=== PATIENT | female | born 1975 | race Caucasian/White ===

== ENCOUNTER 2024-09-24 04:20 | Emergency (ER) | payer OTHER, SELFPAY ==
[2024-09-24 04:26] VITALS: BP 125/79; PULSE 102; TEMP 36.5; O2SAT 97; BMI 20.1
--- NOTE | 2024-09-24 04:39 | ED_ITS ---
HPI HPI - Extremity Injury (Upper) General Chief Complaint: Extremity Injury, Upper Stated Complaint: UPPER RIGHT EXTREMITY PAIN Time Seen by Provider: 09/24/24 04:25 Source: patient Limitations: no limitations History of Present Illness HPI narrative: This 49-year-old female who is right-hand dominant presents for evaluation of severe and exquisite pain in her right wrist joint. She states it is very tender to the touch and feels hot. She has some erythema at the distal ulna and on the dorsum of her hand and distal radius. She denies that she has had any heat or ice on it tonight. She denies any injury but was doing some light weight lifting on Monday. The patient is taking the semaglutide medication and has lost 20 pounds. She states that she does supplement her diet with Nutrafol vitamins but is concerned that she has a vitamin deficiency because she has recently had muscle pains in her shoulders and is seeing her doctor later today for numbness in one of her feet. She denies a history of gout. She denies any beer drinking but does eat red meat on occasion. She denies any chest pain or shortness of breath. There is no pain in her elbow or shoulder at this time. She is crying upon arrival with any movement of the extremity. She has been using ibuprofen without significant improvement. 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 Related Data Allergies Allergy/AdvReac Type Severity Reaction Status Date / Time Penicillins Allergy Unknown Unknown Verified 09/24/24 04:26 Opioid HPI Opioid Management Most Recent Pain and Opioid Data: Last Pain Scale 8 09/24/24 04:30 09/24/24 Review of Systems ROS Status of ROS 10 or more systems reviewed and unremark able except as noted in history and below PFSH PFSH Social History Little interest or pleasure in doing things: not at all Feeling down, depressed, or hopeless: not at all Exam Narrative Exam Narrative: Vital signs and Nursing Notes reviewed: Patient is afebrile, she is mildly tachycardic with a pulse of 102, she has normal blood pressure, she is not hypoxic with pulse ox of 97% on room air General: Awake, alert, oriented, tearful due to right wrist pain, thin, no respiratory distress HEENT: Normocephalic atraumatic, mucous membranes are moist and pink, eyes are clear, normal conjunctiva, vision is grossly intact Chest: Lungs are clear to auscultation with good air entry, there is no wheezing rhonchi or rales appreciated no accessory muscle use, patient is speaking in complete sentences-no chest wall tenderness to palpation CVS: Regular rate and rhythm S1-S2, no murmurs rubs or gallops, pulses are brisk and equal bilaterally ABD: Soft, nondistended, nontender, no rebound guarding or rigidity, bowel sounds are normal, no pulsatile masses appreciated Extremities: Patient is tearful with any movement of the right wrist area. There is some mild swelling and redness to the distal radius and ulna area with extension of the redness onto the dorsum of the hand at the fourth/fifth metacarpal. Patient is able to wiggle all of her fingers. There is no circumferential redness or sign of cellulitis. Radial pulses brisk, capillary refill in the fingers is normal Skin: Normal in appearance without rash,pallor, petechiae or purpura Neuro: No focal deficits Constitutional Vital Signs, click to edit/add: Last Vital Signs Temp 97.7 F 09/24/24 04:26 Pulse 102 H 09/24/24 04:26 Resp 18 09/24/24 04:26 BP 125/79 09/24/24 04:26 Pulse Ox 97 09/24/24 04:26 O2 Del Method Room Air 09/24/24 04:26 Course Vital Signs Vital signs: Vital Signs Temperature 97.7 F 09/24/24 04:26 Pulse Rate 102 H 09/24/24 04:26 Respiratory Rate 18 09/24/24 04:26 Blood Pressure 125/79 09/24/24 04:26 Pulse Oximetry 97 09/24/24 04:26 Oxygen Delivery Method Room Air 09/24/24 04:26 Temperature 97.7 F 09/24/24 04:26 Pulse Rate 102 H 09/24/24 04:26 Respiratory Rate 18 09/24/24 04:26 Blood Pressure 125/79 09/24/24 04:26 Pulse Oximetry 97 09/24/24 04:26 Oxygen Delivery Method Room Air 09/24/24 04:26 MDM - Extremity Injury (Upper) MDM Narrative Medical decision making narrative: This 49-year-old female who is right-hand dominant 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 She denies any injury. She did do some light weight lifting on Monday and her symptoms started on Monday. She has some mild redness and exquisite tenderness to the distal ulna with some radius overlying the distal ulna onto the dorsum of the hand and mildly also in the distal radius area. Her pulses are brisk and equal. Fingers are warm and sensate but she has referred pain with movement of her fingers into her wrist. She states the pain radiates up into her forearm but she has not had any elbow or shoulder pain. She does take semaglutide's and has recently lost 20 pounds and is concerned that she may have some vitamin deficiency. She states she has been having muscle strains recently. She did see her chiropractor and has some impingement syndrome in her right shoulder for which she is doing light physical therapy at home. She denies that she drinks beer has a history of gout or eats a lot of red meat. Her states she barely eats anything since taking the semaglutide medications. Her physical exam is benign besides the tenderness and redness in the right wrist area. My concern is that she is having a gout flare. I ordered a CBC, CMP, sed rate uric acid and CRP. I also ordered an x-ray of the extremity. I reviewed the right wrist x-ray which shows no fracture, dislocation or other notable abnormality. I do not see any arthritic changes. She has a mild elevation in her white count at 12.6 and stable hemoglobin. Her uric acid is normal. Sed rate is normal but CRP is elevated. CMP is normal. She is feeling better after the Percocet and was given a dose of prednisone. I initially suspected that she was experiencing a flare of gout but her labs do point away from this with a normal sed rate. I explained to her that she may have polymyalgia rheumatica because she states that if it is not her knee hurting her shoulder hurts and now her wrist hurts she has been experiencing arthralgias in different joints over the course of the past year. She is seeing her family physician later today and was given a copy of her labs to share with her family physician. I explained to her that she may do a more thorough rheumatologic workup on her in light of her symptoms of arthralgias in different major joints. She is otherwise stable for discharge and will be discharged home with a prescription for Percocet, Zofran and prednisone. Lab Data Attestation: I reviewed the patient's lab results. Labs: Lab Results 09/24/24 Range/Units 04:50 WBC 12.6 H (4.0-11.0) 10^3/uL RBC 4.57 (4.20-5.40) 10^6/uL Hgb 14.6 (12.0-16.0) g/dL Hct 41.6 (36.0-48.0) % MCV 91.0 (81.0-99.0) fL MCH 31.9 (26.7-34.0) pg MCHC 35.1 (29.9-35.2) g/dL RDW 12.2 (11.0-15.0) % Plt Count 333 (150-450) 10^3/uL MPV 9.7 (9.5-13.5) fL Neut % (Auto) 76.2 H (43.0-75.0) % Lymph % (Auto) 12.8 L (20.5-60.0) % Blanco % (Auto) 6.7 (1.7-12.0) % Eos % (Auto) 3.4 (0.9-7.0) % Baso % (Auto) 0.6 (0.2-2.0) % Neut # (Auto) 9.6 H (1.4-6.5) 10^3/uL Lymph # (Auto) 1.6 (1.2-3.8) 10^3/uL Blanco # (Auto) 0.9 H (0.3-0.8) 10^3/uL Eos # (Auto) 0.4 (0.0-0.7) 10^3/uL Baso # (Auto) 0.1 (0.0-0.1) 10^3/uL Abs Immat Gran (auto) 0.04 H (0.00-0.03) 10^3/uL Imm/Tot Granulo (auto) 0.3 (0.0-0.5) % ESR 13 (<=30) mm/hr Sodium 138 (136-145) mmol/L Potassium 3.9 (3.5-5.1) mmol/L Chloride 103 (98-107) mmol/L Carbon Dioxide 26.8 (21.0-32.0) mmol/L Anion Gap 12.1 BUN 10.0 (7.0-18.0) mg/dL Creatinine 0.96 (0.55-1.02) mg/dL Est GFR ( Amer) >60 (>=60 mL/min/1.73m^2) Est GFR (Non-Af Amer) >60 (>=60 mL/min/1.73m^2) BUN/Creatinine Ratio 10.4 Glucose 85 (74-106) mg/dL Uric Acid 4.8 (2.6-6.0) mg/dL Calcium 8.7 (8.5-10.1) mg/dL Total Bilirubin 0.5 (0.2-1.0) mg/dL AST 61 H (15-37) U/L ALT 108 H (14-59) U/L Alkaline Phosphatase 96 (46-116) U/L C-Reactive Protein 1.28 H (<=0.50) mg/dL Total Protein 7.0 (6.4-8.2) g/dL Albumin 3.5 (3.4-5.0) g/dL Globulin 3.5 g/dL Albumin/Globulin Ratio 1.0 Discharge Plan Discharge Chief Complaint: Extremity Injury, Upper Clinical Impression: Arthralgia of right wrist, Polymyalgia Patient Disposition: Home, Self-Care Time of Disposition Decision: 05:38 Condition: Good Mode of Transportation: Private Vehicle Print Language: Solomon Islander Instructions: Arthralgia (ED), Polymyalgia Rheumatica (ED) Referrals: CASTILLO JO [Primary Care Provider] - 1 week Discharge Date/Time: 09/24/24 05:49
[2024-09-24] MEDS: OXYCODONE HCL/ACETAMINOPHEN 5MG/325MG 1 TAB PO (04:54)
[2024-09-24] MEDS: ONDANSETRON 4 MG RAPDIS TABLET SL (04:54)
[2024-09-24 04:57] LABS: Basophils Absolute Auto 0.1 10^3/uL (0.0-0.1); Basophils Percent Auto 0.6 % (0.2-2.0); Eosinophils Absolute Auto 0.4 10^3/uL (0.0-0.7); Eosinophils Percent Auto 3.4 % (0.9-7.0); Hematocrit 41.6 % (36.0-48.0); Hemoglobin 14.6 g/dL (12.0-16.0); Immature Granulocytes Abs Auto 0.04 10^3/uL (0.00-0.03); Immature Granulocytes Pct Auto 0.3 % (0.0-0.5); Lymphocytes Absolute Auto 1.6 10^3/uL (1.2-3.8); Lymphocytes Percent Auto 12.8 % (20.5-60.0); Mean Corpuscular HGB Conc 35.1 g/dL (29.9-35.2); Mean Corpuscular Hemoglobin 31.9 pg (26.7-34.0); Mean Platelet Volume 9.7 fL (9.5-13.5); Monocytes Absolute Auto 0.9 10^3/uL (0.3-0.8); Monocytes Percent Auto 6.7 % (1.7-12.0); Neutrophils Absolute Auto 9.6 10^3/uL (1.4-6.5); Neutrophils Percent Auto 76.2 % (43.0-75.0); Platelet Count 333 10^3/uL (150-450); Red Blood Count 4.57 10^6/uL (4.20-5.40); Red Cell Distribution Width 12.2 % (11.0-15.0); White Blood Count 12.6 10^3/uL (4.0-11.0)
[2024-09-24 05:05] LABS: Erythrocyte Sedimentation Rate 13 mm/hr (<=30)
[2024-09-24 05:12] LABS: Alanine Aminotransferase 108 U/L (14-59); Albumin Level 3.5 g/dL (3.4-5.0); Alkaline Phosphatase 96 U/L (46-116); Anion Gap 12.1; Aspartate Amino Transferase 61 U/L (15-37); BUN Creatinine Ratio 10.4; Bilirubin Total 0.5 mg/dL (0.2-1.0); C Reactive Protein 1.28 mg/dL (<=0.50); Calcium 8.7 mg/dL (8.5-10.1); Carbon Dioxide 26.8 mmol/L (21.0-32.0); Chloride 103 mmol/L (98-107); Estimated GFR (African America >60 (>=60 mL/min/1.73m^2); Estimated GFR (Non-African Ame >60 (>=60 mL/min/1.73m^2); Globulin 3.5 g/dL; Glucose 85 mg/dL (74-106); Potassium 3.9 mmol/L (3.5-5.1); Sodium 138 mmol/L (136-145); Uric Acid 4.8 mg/dL (2.6-6.0)
[2024-09-24] MEDS: PREDNISONE 20 MG TABLET PO (05:42)
== END 2024-09-24 05:49 | disposition home or self-care (01) ==
PROVIDERS: Emergency Provider Emergency Medicine; PCP Family Medicine
DX: M25.531 Pain in right wrist (principal); M35.3 Polymyalgia rheumatica; Z79.899 Other long term (current) drug therapy
CPT/HCPCS: 36415; 73100; 80053; 84550; 85025; 85652; 86140; 99284; J7512; Q0162

== ENCOUNTER 2024-12-11 23:00 | Emergency (ER) | payer OTHER, SELFPAY ==
--- OUTSIDE RECORDS SUMMARY | 2024-12-10 08:30 | XMS_ITS | Encounter Summary ---
Author Organization [facility] Address [address] [place] [address] Care Team Providers Care Cmm Operator Name Role Phone Shahida Whittington MD Primary Care Provider [phone] Shahida Whittington MD Unavailable [phone] Reason for Referral * Imaging (Routine) - Pending Review Specialty Diagnoses / Procedures Referred By Brannon velazquez Referred To Contact Radiology Diagnoses Cervical arthritis Radiculopathy affecting upper extremity Facet arthritis of cervical region Procedures MR cervical spine wo contrast Brittany Downs NP [address] [place] [address] Phone: tel: fax: Referral ID Status Reason Start Date Expiration Date V isits Requested Visits Authorized [id number] Pending Review 12/10/2024 06/08/2025 1 1 Reason for Visit * Reason Comments Neck Pain Encounter Details Date Type Department Care Team (Late st Contact Info) Description 12/10/2024 8:30 AM EDT Office Visit [facility] [address] [place] [address] Brittany Downs NP [address] [place], [place] [id number] Neck pain (Primary Dx); Cervical arthritis; Radiculopathy affecting upper extremity; Facet arthritis of cervical region Social History Tobacco Use Types Packs/Day Years Used Date Smoking Tobacco: Never Smokeless Tobacco: Never Tobacco Cessation:Counseling Given: Not Answered Alcohol Use Standard Drinks/Week Comments Yes 3 (1 standard drink = 0.6 oz pur e alcohol) Caffine: 1 pop every 3 days B1300 Health Literacy Answer Date Recor ded How often do you need to hav e someone help you when you read instructions, pamphlets, or other written material from your doctor or pharmacy? Never 09/23/2024 Humiliation, Afraid, Rape, and Kick questionnair e Answer Date Recorded Within the last year, have y ou been afraid of your partner or ex-partner? No 01/05/2023 Within the last year, have y ou been humiliated or emotionally abused in other ways by your partner or ex-partner? No Within the last year, have y ou been kicked, hit, slapped, or otherwise physically hurt by your partner or ex-partner? No 01/05/2023 Within the last year, have y ou been raped or forced to have any kind of sexual activity by your partner or ex-partner? No 01/05/2023 Social Connection and Isolation Panel [NHANES] A nswer Date Recorded In a typical week, how many times do you talk on the phone with family, friends, or neighbors? Three times a week 09/23/2024 How often do you get togethe r with friends or relatives? Once a week 09/23/2024 How often do you attend chur or episcopalian services? Patient declined 09/23/2024 Do you belong to any clubs o r organizations such as jew groups, unions, fraternal or athletic groups, or school groups? No 09/23/2024 How often do you attend meet ings of the clubs or organizations you belong to? Never 09/23/2024 Are you , , di vorced, , never , or living with a partner? 09/23/2024 AUDIT-C Answer Date Recorded Q1: How often do you have a drink containing alc ohol? 2-4 times a month 09/23/2024 Q2: How many drinks containi ng alcohol do you have on a typical day when you are drinking? 1 or 2 09/23/2024 Q3: How often do you have si x or more drinks on one occasion? Never 09/23/2024 Overall Financial Resource Strain (CARDIA) Answe r Date Recorded How hard is it for you to pa y for the very basics like food, housing, medical care, and heating? Not very hard 09/23/2024 [facility] - Occupational Stress Questionnaire Answer Date Recorded Do you feel stress - tense, restless, nervous, or anxious, or unable to sleep at night because your mind is troubled all the time - these days? Not at all 09/23/2024 Exercise Vital Sign Answer Date Recorde d On average, how many days pe r week do you engage in moderate to strenuous exercise (like a brisk walk)? 2 days 09/23/2024 On average, how many minutes do you engage in exercise at this level? 30 min 09/23/2024 Hunger Vital Sign Answer Date Recorded Within the past 12 months, y ou worried that your food would run out before you got the money to buy more. Never true 09/24/19 25 Within the past 12 months, t he food you bought just didn't last and you didn't have money to get more. Never true 09/23/2024 PRAPARE - Transportation Answer Date Re corded In the past 12 months, has l ack of transportation kept you from medical appointments or from getting medications? No 09/2024 In the past 12 months, has l ack of transportation kept you from meetings, work, or from getting things needed for daily living? No 09/23/2024 Housing Stability Vital Sign Answer Austyn e Recorded In the last 12 months, was t here a time when you were not able to pay the mortgage or rent on time? No 01/05/2023 In the last 12 months, how many places have you lived? 1 01/05/2023 In the last 12 months, was t here a time when you did not have a steady place to sleep or slept in a snf (including now)? No 01/05/2023 Housing Stability Vital Sign Answer Austyn e Recorded In the last 12 months, was t here a time when you were not able to pay the mortgage or rent on time? No 09/23/2024 In the past 12 months, how m any times have you moved where you were living? 0 09/23/2024 At any time in the past 12 m [facility], were you homeless or living in a snf (including now)? No 09/23/2024 Comments Unknown Sex and Gender Information Value Date Recorded Sex Assigned at Not on file Legal Sex Female 6:53 PM EDT Gender Identity Not on file Sexual Orientation Not on file documented as of this encounter Last Filed Vital Signs Vital Sign Reading Time Taken Comments Blood Pressure 130/86 12/10/2024 8:31 AM EDT Pulse 83 12/10/2024 8:31 AM EDT Temperature 36.1 C (96.9 F) 12/10/2024 8:31 AM EDT Respiratory Rate - - Oxygen Saturation 99% 12/10/2024 8:31 AM EDT Inhaled Oxygen Concentration - - Weight 62.8 kg (138 lb 6.4 oz) 12/10/2024 8:31 A M EDT Height - - Body Mass Index 19.86 10/09/2024 9:01 AM EDT documented in this encounter Progress Notes * Brittany Downs NP - 12/10/2024 8:30 AM EDT Images from the original note were not included. Vidya Ashraf is a 49 y.o. female presents with chief complaint of Neck Pain HPI: HPI History of Present Illness The patient presents for evaluation of neck pain. She has been experiencing persistent neck pain since 06/2024. A territory sales executive conducted a series of tests, all of which returned negative results, ruling out any autoimmune disease. However, radiographic imaging revealed the presence of degenerative disc disease and arthritis, likely contributing to her neck discomfort. She was advised to consult an nuclear weapons specialist. She has expressed a preference for neurosurgical intervention over orthopedic surgery, should it be necessary. She has not undergone any MRI scans or physical therapy for her current condition. She is considering the use of peptides, specifically PDA, as an alternative treatment option. She has also discussedpotential pain management strategies with her hormone doctor, who previously worked in pain management, including injections and ablation. She is open to surgical intervention if deemed necessary. She has been managing her pain with ibuprofen 400 mg, but was advised to increase the dosage to 800mg. Despite taking the medication with food, she experienced gastrointestinal upset after a week ofincreased dosage and subsequently discontinued its use. She has a history of back surgery, including spinal fusion, performed a decade ago. During that time, she was prescribed naproxen for back pain, which resulted in significant gastrointestinal distress. PAST SURGICAL HISTORY: Spinal fusion surgery: 10 years ago SUBJECTIVE: MEDICATIONS: ALLERGIES Current Outpatient Medications Medication Instructions Azelex 20 % cream APPLY TO THE AFFECTED AREA(S) EVERY NIGHT AT BEDTIME cholecalciferol (Vitamin D-3) 75 MCG (3000 UT) tablet Take by mouth. ibuprofen 800 mg, Oral, 3 times daily levothyroxine (SYNTHROID) 25 mcg, Oral, Daily before breakfast loratadine (Claritin) 10 MG tablet Every 24 hours progesterone 200 mg, Daily spironolactone (Aldactone) 100 MG tablet testosterone implant as directed Implant Tirzepatide-Weight Management (ZEPBOUND SC) Inject under the skin valACYclovir (VALTREX) 1,000 mg, 2 times daily Allergies Allergen Reactions Naproxen GI intolerance Penicillins Other Reaction(s): Unknown Thyroid PHYSICAL MEDICINE SPECIALIST Thyroid PAST MEDICAL HISTORY: SOCIAL HISTORY SURGICAL HISTORY: Past Medical History: Diagnosis Date Allergic Dermal nevus 2012 Eczema GERD (gastroesophageal reflux disease) Urinary tract infection Varicella Social History Tobacco Use Smoking status: Never Smokeless tobacco: Never Vaping Use Vaping status: Never Used Substance Use Topics Alcohol use: Yes Alcohol/week: 3.0 standard drinks of alcohol Types: 3 Glasses of wine per week Comment: Caffine: 1 pop every 3 days Drug use: Never Past Surgical History: Procedure Laterality Date ADENOIDECTOMY 1978 BACK SURGERY 2015 COSMETIC SURGERY 2019 EXCISION 2013 skin lesion right upper chest; dermal nevus FOOT SURGERY Right 2013 excision lesion NASAL SEPTUM SURGERY 2011 deviated septum NASAL SINUS SURGERY 07/2018 SPINE SURGERY TONSILECTOMY, ADENOIDECTOMY, BILATERAL MYRINGOTOMY AND TUBES TONSILLECTOMY 1977 REVIEW OF SYMPTOMS: Review of Systems Constitutional: Negative. HENT: Negative. Respiratory: Negative for cough, shortness of breath and wheezing. Cardiovascular: Negative for chest pain. Gastrointestinal: Negative for abdominal pain. Genitourinary: Negative. Musculoskeletal: Positive for neck pain. Skin: Negative. Neurological: Negative. OBJECTIVE: Vitals: 12/10/24 0831 Temp: 96.9 ??F Physical Exam Vitals and nursing note reviewed. Constitutional: Appearance: Normal appearance. HENT: Head: Normocephalic and atraumatic. Right Ear: Tympanic membrane normal. Left Ear: Tympanic membrane normal. Nose: Nose normal. Eyes: Extraocular Movements: Extraocular movements intact. Conjunctiva/sclera: Conjunctivae normal. Pupils: Pupils are equal, round, and reactive to light. Cardiovascular: Rate and Rhythm: Normal rate and regular rhythm. Heart sounds: Normal heart sounds. Pulmonary: Effort: Pulmonary effort is normal. Breath sounds: Normal breath sounds. Musculoskeletal: Cervical back: Neck supple. Pain with movement present. Decreased range of motion. Neurological: Mental Status: She is alert. ASSESSMENT AND PLAN: Assessment/Plan Diagnoses and all orders for this visit: Neck pain - celecoxib (CeleBREX) 200 MG capsule; Take 1 capsule (200 mg) by mouth Daily Cervical arthritis - celecoxib (CeleBREX) 200 MG capsule; Take 1 capsule (200 mg) by mouth Daily - MR cervical spine wo contrast; Future Radiculopathy affecting upper extremity - MR cervical spine wo contrast; Future Facet arthritis of cervical region - MR cervical spine wo contrast; Future Assessment & Plan 1. Cervicalgia. - The patient's cervicalgia is likely due to degenerative disc disease and arthritis, as indicated by previous x-rays. - She has been experiencing pain since 06/2024 and has had an upset stomach from ibuprofen 800 mg. - Celebrex 200 mg once daily has been prescribed as an alternative NSAID that is less irritating tothe stomach. - An MRI has been ordered to further evaluate the condition. If the MRI results indicate the need for further intervention, a referral to a neurosurgeon will be considered. No follow-ups on file. documented in this encounter Plan of Treatment Scheduled Orders Name Type Priority Associated Diagnoses Orde r Schedule MR cervical spine wo contrast Imaging Routine Cervical arthritis Radiculopathy affecting upper extremity Facet arthritis of cervical region Expected: 12/10/2024, Expires: 12/10/2025 documented as of this encounter Visit Diagnoses Diagnosis Neck pain- Primary Cervicalgia Cervical arthritis Cervical spondylosis without myelopathy Radiculopathy affecting upper extremity Facet arthritis of cervical region documented in this encounter Care Teams Cmm Operator Relationship Specialty Start Date End Date Shahida Whittington MD [address], [place] [id number] PCP - General Family Medicine 01/04/23 Shahida Whittington MD [address] [place] [address] PCP - Medical [place] [employer] 01/21/19 07/23/99 documented as of this encounter
[2024-12-11 23:10] VITALS: BP 130/75
[2024-12-11 23:11] VITALS: BP 130/75; PULSE 83; O2SAT 97; BMI 19.9
--- OUTSIDE RECORDS SUMMARY | 2024-12-11 23:13 | XMS_ITS | Encounter Summary ---
Author Organization [facility] Address [address] [place] [address] Care Team Providers Care Highway Maintainer Name Role Phone Shahida Whittington MD Primary Care Provider [phone] Shahida Whittington MD Unavailable [phone] Encounter Details Date Type Department Care Team (Latest Contact Info) Description 12/06/2024 Travel Social History Tobacco Use Types Packs/Day Years Used Date Smoking Tobacco: Never Smokeless Tobacco: Never Alcohol Use Standard Drinks/Week Comments Yes 3 (1 standard drink = 0.6 oz pur e alcohol) Caffine: 0 B1300 Health Literacy Answer Date Recor ded [...] How often do you attend chur or jew services? Patient declined 09/23/2024 Do you belong to any clubs o r organizations such as oriental orthodox groups, unions, fraternal or athletic groups, or [...] care, and heating? Not very hard 09/23/2024 [facility] Occup[facility] ional Health - Occupational Stress Questionnaire Answer Date [...] place to sleep or slept in a retirement (including now)? No 01/05/2023 Housing Stability Vital Sign Answer Austyn e Recorded In the last 12 months, was t here a time when you were not able to pay the mortgage or rent on time? No 09/23/2024 In the past 12 months, how m any times have you moved where you were living? 0 09/23/2024 At any time in the past 12 m [facility], were you homeless or living in a retirement (including now)? No 09/23/2024 Comments Unknown Sex and Gender Information Value Date Recorded Sex Assigned at Not on file Legal Sex Female 6:53 PM EDT Gender Identity Not on file Sexual Orientation Not on file documented as of this encounter Plan of Treatment Not on file documented as of this encounter Visit Diagnoses Not on filedocumented in this encounter Care Teams Highway Maintainer Relationship Specialty Start Date End Date Shahida Whittington MD [address] [facility] [place] [address] PCP - General Family Medicine 01/04/23 Shahida Whittington MD [address] [place] [address] PCP - Medical [employer] [employer] 01/21/19 07/23/99 documented as of this encounter
--- OUTSIDE RECORDS SUMMARY | 2024-12-11 23:13 | XMS_ITS | Encounter Summary ---
Author Organization [facility] Address [address] [place] [address] Care Team Providers Care Director Of Community Center Name Role Phone Shahida Whittington MD Primary Care Provider [phone] Shahida Whittington MD Unavailable [phone] Encounter Details Date Type Department Care Team (Late st Contact Info) Description 06/07/2023 Abstract [facility] [address] [place] [address] Shahida Whittington MD [address] [place] [address] Social History Tobacco Use Types Packs/Day Years Used Date Smoking Tobacco: Never Smokeless Tobacco: Never Alcohol Use Standard Drinks/Week Comments Yes 3 (1 standard drink = 0.6 oz pur e alcohol) Humiliation, Afraid, Rape, and Kick questionnair e [...] the phone with family, friends, or neighbors? Once a week 01/05/2023 How often do you get togethe r with friends or relatives? Once a week 01/05/2023 How often do you attend voodoo or yarsanism serv ices? Patient declined 01/05/2023 Do you belong to any clubs o r organizations such as voodoo groups, unions, fraternal or athletic groups, or school groups? No 01/05/2023 Attends Club or Organization Meetings Not on kaiden e 01/05/2023 Are you , , di vorced, , never , or living with a partner? 01/05/2023 AUDIT-C Answer Date Recorded Q1: How often do you have a drink containing alc ohol? 2-4 times a month 01/05/2023 Q2: How many drinks containi ng alcohol do you have on a typical day when you are drinking? 1 or 2 01/05/2023 Q3: How often do you have si x or more drinks on one occasion? Never 01/05/2023 Overall Financial Resource Strain (CARDIA) Answe r Date Recorded How hard is it for you to pa y for the very basics like food, housing, medical care, and heating? Not hard at all 01/05/2023 [facility] - Occupational Stress Questionnaire Answer Date Recorded Do you feel stress - tense, restless, nervous, or anxious, or unable to sleep at night because your mind is troubled all the time - these days? Only a little 01/05/2023 Exercise Vital Sign Answer Date Recorde d On average, how many days pe r week do you engage in moderate to strenuous exercise (like a brisk walk)? 3 days 01/05/2023 On average, how many minutes do you engage in exercise at this level? 30 min 01/05/2023 Hunger Vital Sign Answer Date Recorded Within the past 12 months, y ou worried that your food would run out before you got the money to buy more. Never true 01/06/20 23 Within the past 12 months, t he food you bought just didn't last and you didn't have money to get more. Never true 01/05/2023 PRAPARE - Transportation Answer Date Re corded In the past 12 months, has l ack of transportation kept you from medical appointments or from getting medications? No 12/22 In the past 12 months, has l ack of transportation kept you from meetings, work, or from getting things needed for daily living? No 01/05/2023 Housing Stability Vital Sign Answer [...] place to sleep or slept in a prison (including now)? No 01/05/2023 Comments Unknown Sex and Gender Information Value Date Recorded Sex Assigned at Not on file Legal Sex Female 6:53 PM EDT Gender Identity Not on file Sexual Orientation Not on file documented as of this encounter Plan of Treatment Not on file documented as of this encounter Visit Diagnoses Not on filedocumented in this encounter Care Teams Director Of Community Center Relationship Specialty Start Date End Date Shahida Whittington MD [address] [facility] [place] [address] PCP - General Family Medicine 01/04/23 Shahida Whittington MD [address] [place] [address] PCP - Medical [employer] 01/21/19 07/23/99 documented as of this encounter
--- OUTSIDE RECORDS SUMMARY | 2024-12-11 23:13 | XMS_ITS | Clinical Summary ---
Author Organization [facility] Address [address] [place] [address] Care Team Providers Care Manhole Stripper Name Role Phone Shahida Fernandez MD Primary Care Pr ovider Allergies Active Allergy Reactions Criticality Noted Date Comments Penicillins 07/02/2013 Medications Liothyronine Sodium (RWSWCME-X-JYHPZT INE SODIUM) POWD Take 3.75 mg by mouth daily Active Cholecalciferol (VITAMIN D3) 3000 UNITS TABS Take by mouth Activ e Loratadine (CLARITIN PO) Take by mouth as needed Active omeprazole (PRILOSEC) 20 MG delayed release capsule take 2 capsules by mouth once daily before A MEAL 0 7 Active fluticasone (FLONASE) 50 MCG/ACT nasal spray instill 1 spray into each nostril once daily 0 7 Active triamterene-hydro chlorothiazide (MAXZIDE-25) 37.5-25 MG per tabletIndications :Retention of fluid Take 1 tablet by mouth daily as needed (For water retention use only when needed) 30 tablet 3 7 Active TAZORAC 0.05 % cream APPLY A SMALL AMOUNT TO THE FACE EVERY NIGHT 0 8 Active nystatin (MYCOSTATIN) 266678 UNIT/ML suspension Take 4 mLs by mouth 4 times daily 0 9 Active Specialty Vitamins Products (MENOPAUSE RELIEF PO) Take 3 tablets by mouth nightly Active Progesterone Micronized (PROGESTERONE PO) Take 0.[address] .25 ml subligual Active EC-RX TESTOSTERONE TD Place 1.5 mLs onto the skin Apply 1.5 ml nightly to thigh Active clotrimazole-beta methasone (LOTRISONE) 1-0.05 % creamIndications: Candidal vulvitis Apply topically 2 times daily. 1 Tube 1 0 Active Active Problems Problem Noted Date Diagnosed Date Heartburn 07/22/2013 Family History Medical History Relation Name Comments Heart Disease Father Heart Surgery Father Heart Surgery Paternal Aunt ablation for a-fib Alzheimer's Disease Paternal Grandfather Heart Attack Paternal Uncle Heart Disease Paternal Uncle Relation Name Status Comments Father Alive Mother Alive Paternal Aunt Alive Paternal Grandfather Paternal Uncle Social History Tobacco Use Types Packs/Day Years Used Date Smoking Tobacco: Never Smokeless Tobacco: Never Alcohol Use Standard Drinks/Week Comments Yes 0 (1 standard drink = 0.6 oz pur e alcohol) weekly PHQ-2 Answer Date Recorded PHQ-2 Score 0 10/24/2018 Comments No Sex and Gender Information Value Date Recorded Sex Assigned at Not on file Legal Sex Female 3:30 PM EST Gender Identity Not on file Sexual Orientation Not on file Last Filed Vital Signs Vital Sign Reading Time Taken Comments Blood Pressure 118/64 09/05/2019 3:06 PM EST Pulse 80 07/22/2013 12:05 PM EST Temperature 36.9 C (98.5 F) 07/22/2013 12:05 PM EST Respiratory Rate 14 07/22/2013 12:05 PM EST Oxygen Saturation 100% 07/22/2013 12:05 PM EST Inhaled Oxygen Concentration - - Weight 65.3 kg (144 lb) 09/05/2019 3:06 PM EST Height 177.8 cm (5' 10 ) 09/05/2019 3:06 PM EST Body Mass Index 20.66 09/05/2019 3:06 PM EST Plan of Treatment Not on file Insurance [employer] Care Teams Manhole Stripper Relationship Specialty Start Date End Date Shahida Fernandez MD PCP - General Family Medicine 01/16/17
--- OUTSIDE RECORDS SUMMARY | 2024-12-11 23:13 | XMS_ITS | Clinical Summary ---
Author Organization [employer] [facility] Address [id number] [address] [place] [address] Care Team Providers Care Semiconductor Technician Name Role Phone Shahida Whittington MD Primary Care Provider [phone] Allergies Active Allergy Reactions Criticality Noted Date Comments Penicillins 10/24/2024 Medications ibuprofen (MOTRIN) 800 mg tablet Take 1 tablet (800 mg total) by mouth every 6 (six) hours as needed. 4 Active levothyroxine (SYNTHROID, LEVOTHROID) 25 MCG tablet Take 1 tablet (25 mcg total) by mouth in the morning. 4 01/09/20 25 Active loratadine (CLARITIN) 10 mg tablet Take 1 tablet (10 mg total) by mouth in the morning. Active ondansetron (ZOFRAN) 4 mg tablet Take 1 tablet (4 mg total) by mouth every 8 (eight) hours as needed for nausea. 5 Active progesterone (PROMETRIUM) 200 mg capsule Take 1 capsule (200 mg total) by mouth in the morning. Active spironolactone (ALDACTONE) 100 mg tablet Take 1 tablet (100 mg total) by mouth in the morning. Active valACYclovir (VALTREX) 1000 mg tablet Take 1 tablet (1,000 mg total) by mouth in the morning and 1 tablet (1,000 mg total) before bedtime. 4 Active methylPREDNISol one (MEDROL, JUAN,) 4 mg tablet follow package directions 21 tablet 5 Active tiZANidine (ZANAFLEX) 2 mg tabletIndicatio ns:Neck pain One tab at bed time 30 tablet 2 5 Active Active Problems Problem Noted Date Diagnosed Date HLA B27 positive 11/21/2024 Neck pain 11/21/2024 MATTIE positive 10/24/2024 Arthritis of right wrist 10/24/2024 Encounters Date Type Department Care Team Description 11/26/2024 Telephone [facility] Department of [facility] [address] [place] [address] [address] [place] [address] Bonita Greco, [facility] 11/21/2024 3:30 PM EDT Office Visit [facility] Department of [address] [place] [address] Kenneth Galvan MD HLA B27 positive (Primary Dx); Neck pain 11/21/2024 2:50 PM EDT - 11/21/2024 11:59 PM EDT Hospital Encounter [facility] - [facility]iology Imaging [address] [place] [address] [address] [place] [id number] Neck pain Discharge Disposition: Home 11/19/2024 Travel 11/04/2024 Telephone [facility] Department of [address] [place] [address] Margarita Rivera, [facility] 10/24/2024 12:14 PM EDT - 10/24/2024 11:59 PM EDT Hospital Encounter [facility] - Lab [address] [place] [address], [address] [place] [phone] MATTIE positive Discharge Disposition: Home 10/24/2024 11:45 AM EDT Office Visit [facility] Department of [facility] [address] [place] [address] [address] [place] [address] Kenneth Galvan MD MATTIE positive (Primary Dx); Arthritis of right wrist 10/23/2024 Travel from Last 3 Months Social History Tobacco Use Types Packs/Day Years Used Date Smoking Tobacco: Never Assessed Childcare Answer Date Recorded Childcare Unknown 01/02/2019 Employment Answer Date Recorded Employment Unknown 01/02/2019 Comments Unknown Sex and Gender Information Value Date Recorded Sex Assigned at Not on file Legal Sex Female 11:29 AM EDT Gender Identity Not on file Sexual Orientation Not on file Last Filed Vital Signs Vital Sign Reading Time Taken Comments Blood Pressure 112/64 10/24/2024 11:23 AM EDT Pulse - - Temperature - - Respiratory Rate 18 11/21/2024 2:16 PM EDT Oxygen Saturation - - Inhaled Oxygen Concentration - - Weight - - Height - - Body Mass Index - - Plan of Treatment Health Maintenance Due Date Last Done Comments Depression Screening 1986 Tobacco Screening 1986 Adult BMI Screening 1992 DTaP,Tdap and Td Vaccines (1 - Tdap) 1993 Pap Smear 1995 COVID-19 Vaccine (3 - season) 2024, 09/29/2020 Zoster (Shingles) Vaccine (1 of 2) 2024 Influenza Vaccine 03/24/2025 Medical Devices Not on file Procedures Procedure Name Priority Date/Time Associated Diagnosis Comments XR SPINE CERVICAL 4 OR 5 VWS Routine 11/21/2024 3:03 PM EDT Neck pain DSDNA AB BY TERRANCE IFA, IGG, S Routine 10/24/2024 12:15 PM EDT C-REACTIVE PROTEIN Routine 10/24/2024 12 :15 PM EDT MATTIE positive ERYTHROCYTE SEDIMENTATION RATE (ESR) Routine 10/24/2024 12:15 PM EDT MATTIE positive C4 COMPLEMENT Routine 10/24/2024 12:15 PM EDT MATTIE positive C3 COMPLEMENT Routine 10/24/2024 12:15 PM EDT MATTIE positive MIGUELINA PANEL Routine 10/24/2024 12:15 PM EDT MATTIE positive UNLISTED LAB TEST Routine 10/24/2024 12: 15 PM EDT MATTIE positive from Last 3 Months Results * X-ray spine cervical 4 or 5 views (11/21/2024 3:03 PM EDT) Anatomical Region Laterality Modality MSK, Neuro, Spine, C-spine N/A Compu sameer Radiography 11/25/2024 8:15 PM EDT Narrative 11/25/2024 8:15 PM EDT XR SPINE CERVICAL 4 OR 5 VWS History: Neck pain Findings: There is no fracture or destructive lesion. Impression: * No acute findings. * Diffuse disc disease and facet arthritis * Unremarkable oblique views * Consider MRI if you would like to assess for stenosis and/or radiculopathy or other occult process. Finalized by Fabio Martines MD on 11/25/2024 8:15 PM Procedure Note Fabio Martines MD - 11/25/2024 XR SPINE CERVICAL 4 OR 5 VWS History: Neck pain Findings: There is no fracture or destructive lesion. Impression: * No acute findings. * Diffuse disc disease and facet arthritis * Unremarkable oblique views * Consider MRI if you would like to assess for stenosis and/orradiculopathy or other occult process. Finalized by Fabio Martines MD on 11/25/2024 8:15 PM Kenneth Galvan MD IMG DIAGNOSTIC IMAGING ORDERAB LES Final Result * DNA double-stranded (dsDNA) Abs by Crithidia luciliae IFA (10/24/2024 12:15 PM EDT) dsDNA Ab by Crithidia IFA, IgG, S Negative Negative 10/25/2024 9:54 PM EDT [facility] Crithidia Interpretation See Note 10/25/2024 9:54 PM EDT [facility] Comment: NOTE Testing for dsDNA antibody by Crithidia IFA was negative. Test Performed by: [facility] [address] [place] [address] Seed Cleaner Operator: Vikram Carter Ph.D.; CLIA# [id number] Serum / Unknown 10/24/2024 1 2:15 PM EDT 10/24/2024 12:17 PM EDT us Kenneth Galvan MD LAB BLOOD ORDERABLES Final Res ult [facility] [address] [place] [address] * Unlisted Lab Test Anti-DNA by dariel with titratioin (10/24/2024 12:15 PM EDT) Unlisted lab test Sent to reference lab 10/24/2024 4:16 PM EDT [facility] MISCELLANEOUS 10/24/2024 12: 15 PM EDT 10/24/2024 12:17 PM EDT us Kenneth Galvan MD LAB BLOOD ORDERABLES Final Res ult [facility] * Erythrocyte Sedimentation Rate (ESR) (10/24/2024 12:15 PM EDT) Sed Rate 4 0 - 30 mm/h 10/24/2024 4:19 PM EDT [facility] Blood / Unknown 10/24/2024 1 2:15 PM EDT 10/24/2024 12:17 PM EDT Kenneth Galvan MD LAB BLOOD ORDERABLES Final Res ult [facility] [address] [place] [address] * MIGUELINA Panel (10/24/2024 12:15 PM EDT) Ss-a/ro antibodies IgG <0.2 <1.0 AI 10/24/2024 7:10 PM EDT [facility] Ss-b/la antibodies IgG <0.2 <1.0 AI 10/24/2024 7:10 PM EDT [facility] Anti-rodriguez AB IgG <0.2 <1.0 AI 10/24/2024 7:10 PM EDT [facility] Anti MINES SAFETY ENGINEER <0.2 <1.0 AI 10/24/2024 7:10 PM EDT [facility] Scleroderma scl-70 <0.2 <1.0 AI 10/24/2024 7:10 PM EDT [facility] Anti JOSHUA-1 <0.2 <1.0 AI 10/24/2024 7:10 PM EDT [facility] Serum / Unknown 10/24/2024 1 2:15 PM EDT 10/24/2024 12:17 PM EDT us Kenneth Galvan MD LAB BLOOD ORDERABLES Final Res ult Performing Organization Address City/[facility]/ZIP Co de Phone Number [facility] [address] [place] [address], [facility] [address] [place] [address] * C3 complement (10/24/2024 12:15 PM EDT) C3 Complement 128 86 - 184 mg/dL 10/24/2024 4:08 PM EDT [facility] Serum / Unknown 10/24/2024 1 2:15 PM EDT 10/24/2024 12:17 PM EDT us Kenneth Galvan MD LAB BLOOD ORDERABLES Final Res ult [facility] [address] [place] [address], [facility] [address] [place] [address] * C4 complement (10/24/2024 12:15 PM EDT) C4 Complement 35 16 - 47 mg/dL 10/24/2024 4:08 PM EDT [facility] Serum / Unknown 10/24/2024 1 2:15 PM EDT 10/24/2024 12:17 PM EDT us Kenneth Galvan MD LAB BLOOD ORDERABLES Final Res ult Performing Organization Address City/[facility]/ZIP Co de Phone Number [facility] [address] [facility] [place] [address] * C-reactive protein (10/24/2024 12:15 PM EDT) CRP 0.7 0.000 - 0.744 mg/dL 10/24/2024 4:06 PM EDT [facility] PLASMA 10/24/2024 12:1 5 PM EDT 10/24/2024 12:17 PM EDT Kenneth Galvan MD LAB BLOOD ORDERABLES Final Res ult Performing Organization Address City/[facility]/ZIP Co de Phone Number [facility] [address] [place] [address], [address] [place] [address] from Last 3 Months Insurance [employer] Member Subscriber Plan / Payer (Ef fective 2024-Present) Name:Vidya Ashraf Relation to Subscriber:Self Name:Vidya Ashraf Payer ID:Not on file Type:Not on file Address: [place] [id number] Care Teams Semiconductor Technician Relationship Specialty Start Date End Date Shahida Whittington MD [address] [place] [address] PCP - General 10/23/24
--- OUTSIDE RECORDS SUMMARY | 2024-12-11 23:13 | XMS_ITS | Clinical Summary ---
Author Organization [facility] Address [address] [place] [address] Phone Care Team Providers Care Truck Trailer Final Inspector Name Role Phone Unavailable Primary Care Provider Unavailabl e Social History Tobacco Use Types Packs/Day Years Used Date Smoking Tobacco: Never Assessed Comments Unknown Sex and Gender Information Value Date Recorded Sex Assigned at Not on file Legal Sex Female 2:30 AM EST Gender Identity Not on file Sexual Orientation Not on file Last Filed Vital Signs Vital Sign Reading Time Taken Comments Blood Pressure 105/58 08/02/2018 8:13 AM EST Pulse 86 08/02/2018 8:13 AM EST Temperature 36.7 C (98.1 F) 08/02/2018 8:13 AM EST Respiratory Rate 16 08/02/2018 8:13 AM EST Oxygen Saturation - - Inhaled Oxygen Concentration - - Weight - - Height - - Body Mass Index - - Plan of Treatment Not on file
--- OUTSIDE RECORDS SUMMARY | 2024-12-11 23:13 | XMS_ITS | Encounter Summary ---
Author Organization [facility] Address [address] [place] [address] Care Team Providers Care Chartered Wealth Manager Name Role Phone Shahida Whittington MD Primary Care Provider [phone] Shahida Whittington MD Unavailable [phone] Encounter Details Date Type Department Care Team (Late st Contact Info) Description 04/24/2023 Abstract [facility] [address] [place] [id number] Christal Chavez MD [address] [place] [address] Social History Tobacco Use Types Packs/Day Years [...] week 01/05/2023 How often do you attend anabaptist or sabianism serv ices? Patient declined 01/05/2023 Do you belong to any clubs o r organizations such as anabaptist groups, unions, fraternal or athletic groups, or [...] and heating? Not hard at all 01/05/2023 [facility] - Occupational Stress [...] place to sleep or slept in a senior care (including now)? No 01/05/2023 Comments Unknown Sex and Gender Information Value Date Recorded Sex Assigned at Not on file Legal Sex Female 6:53 PM EDT Gender Identity Not on file Sexual Orientation Not on file COVID-19 Exposure Response Date Recorded In the last 10 days, have yo u been in contact with someone who was confirmed or suspected to have Coronavirus/COVID-19? No / Unsure 04/19/2023 1:00 PM EDT documented as of this encounter Plan of Treatment Not on file documented as of this encounter Visit Diagnoses Not on filedocumented in this encounter Care Teams Chartered Wealth Manager Relationship Specialty Start Date End Date Shahida Whittington MD [address] [place] [address] PCP - General Family Medicine 01/04/23 Shahida Whittington MD [address] [place] [address] PCP - Medical [place] [employer] 01/21/19 07/23/99 documented as of this encounter
--- OUTSIDE RECORDS SUMMARY | 2024-12-11 23:13 | XMS_ITS | CCD ---
Author Organization [facility] Inform ion Partnership [facility] Care Team Providers Care Site Monitor Name Role Phone MATEO CEE Attending Unavailable MATEO CEE Referring Unavailable Shahida Perdomo Primary Care Provi [place] Shahida Perdomo Primary Care Provi [place] THOR HERNANDEZ Referring Unavailable SHAHIDA PERDOMO Primary Care Un available THOR HERNANDEZ Referring Unavailable SHAHIDA PERDOMO Primary Care Un available AILEEN WILLARD PA-C Attending Sandra Shahida Campos MD Consulting Unavaila Shahida Junior MD Primary Care UnavailFlakita Gooden Unavailable AUSTYN, DR KATIA Friedman Attending Unavailable AUSTYN, DR KATIA Friedman Consulting Unavailable AUSTYN, DR KATIA Friedman Admitting Unavailable WAYNE, DR PARMJIT Hummel Consulting Unavailable Nikolas Johnson Unavailable Asaad, Imad Unavailable Asaad, Imad Attending Unavailable Asaad, Imad Admitting Unavailable Shahida Jo Primary Care Unavailable Shahida Jo MD Primary Care Provider Shahida Jo MD Unavailable Shahida Jo MD Primary Care Unavaila tim Willard PA-C, Aileen Bond Attending Sandra jose raul Willard PA-C, Aileen Bond Attending Sandra jose raul Jo MD, Shahida Wilson Primary Care Unavailchandrakant Willard PA-C, Aileen Bond Attending Sandra jose raul Jo MD, Shahida Wilson Primary Care Unavailchandrakant Jo MD, Shahida Torres Primary Care Provider JOSE HANSEL Attending Unavailable SHAHIDA JO Referring Unavailable SHAHIDA JO Primary Care Unavailable GALVAN, HANSEL Referring Unavailable SHAHIDA JO Primary Care Unavailable GALVAN, HANSEL Referring Unavailable SHAHIDA JO Primary Care Unavailable GALVAN, HANSEL Attending Unavailable GALVAN, HANSEL Referring Unavailable SHAHIDA JO Primary Care Unavailable BRENDA DOWNS Attending Unavailab BRENDA Ley Attending Unavailab NESTOR Michel Attending Unavailab HEIDI Pulido Attending Unavailable YANIRA GUTIERREZ Referring Unavailable KENNY GALAVIZ Attending Unavailable BRENDA DOWNS Referring Unavailab BRENDA Ley Attending Unavailab le Allergies Allergy Classification Reported Allergen(s) Allergy Type Date of Onset Reaction(s) Facility (4 sources) Penicillins; Translations: [PENICILLINS] Propensity to adverse reactions to drug 3 [place], [place] (20 sources) Naproxen Drug Allergy 4 GI intolerance [facility] (8 sources) Penicillin; Translations: [penicillin] Drug Allergy unknown [facility] Repository (1 source) Penicillins Drug allergy (disorder) 5 [facility] Repository (1 source) Penicillins Drug allergy (disorder) 3 [facility] Repository (13 sources) Penicillins Drug Allergy 3 [facility] Work Phone: (13 sources) thyroid (PRISON) Drug Allergy 4 [facility] (1 source) Citric Acid; Translations: [citric acid] Drug Allergy [facility] Repository (3 sources) Penicillins Propensity to adverse reactions to drug [facility] Medications Current Medications Medication Drug Class(es) Dates Sig (Normalized) Sig (Original) [id number] 200 actuat albuterol 0.09 mg/actuat metered dose inhaler (1 source) beta2-Adrenergic Agonist Start: 09-06-2018 take 2 puff(s) by inhalation every four to six hours as needed ProAir HFA 108 (90 Base) MCG/ACT 2 puffs as needed Inhalation every 4-6 hrs Aug, Active azelaic acid 200 mg/ml topical cream (13 sources) Start: 01-25-2022 Azelex 20 % cream APPLY TO THE AFFECTED AREA(S) EVERY NIGHT AT BEDTIME 01/25/2022 Active betamethasone 0.5 mg/ml / clotrimazole 10 mg/ml topical cream (2 sources) Azole Antifungal, Corticosteroid Start: 09-05-2019 clotrimazole-be tamethasone (LOTRISONE) 1-0.05 % cream Indications: Candidal vulvitis Apply topically 2 times daily. 1 Tube 1 09/05/2019 Active Brompheniramine / Pseudoephedrine (7 sources) alpha-Adrenergic Agonist Start: 09-06-2018 take 5 mL by mouth every six hours as needed Start: 09-06-2018 take 5 mL by mouth e very six hours as needed Bromfed DM 30-2-10 MG/5ML 5 ml as needed Orally every 6 hrs Aug, Not-Taking/PRN Start: 09-06-2018 take 5 mL by mouth e very six hours as needed Bromfed DM 30-2-10 MG/5ML 5 ml as needed Orally every 6 hrs Aug, Not-Taking Start: 09-06-2018 take 5 mL by mouth e very six hours as needed Bromfed DM 30-2-10 MG/5ML 5 ml as needed Orally every 6 hrs Aug, Active celecoxib 200 mg oral capsule (2 sources) Nonsteroidal Anti-inflammatory Drug Start: 12-10-2024 take 1 capsule by mouth once daily celecoxib (CeleBREX) 200 MG capsule Indications: Neck pain , Cervical arthritis Take 1 capsule (200 mg) by mouth Daily 30 capsule 1 12/10/2024 Active Start: 12-10-2024 take 1 capsule by mo [facility] once daily celecoxib (CeleBREX) 200 MG capsule Indications: Neck pain , Cervical arthritis Take 1 capsule (200 mg) by mouth Daily 30 capsule 1 12/10/2024 Active cholecalciferol 0.075 mg ora l tablet (16 sources) Vitamin D cholecalciferol (Vitamin D-3) 75 MCG (3000 UT) tablet Take by mouth. Active Cholecalciferol (VITAMIN D3) 3000 UNITS TABS Take by mouth 0 Active EC-RX TESTOSTERONE TD (2 sources) EC-RX TESTOSTERO NE TD Place 1.5 mLs onto the skin Apply 1.5 ml nightly to thigh 0 Active famotidine 40 mg oral tablet (5 sources) Histamine-2 Receptor Antagonist Start: 3 take 1 tablet by mouth every twelve hours fluconazole 200 mg oral tablet (6 sources) Azole Antifungal Start: 3 take 2 tablets by mouth every twenty-four hours Start: 06-01-2023 take 1 tablet by juanita th every twenty-four hours Fluconazole 200 MG 1 tablet Orally ONCE DAILY for 20 days May, Active fluticasone propionate 0.05 mg/actuat metered dose nasal spray (3 sources) Corticosteroid Start: 11-24-2016 take 1 spray(s) nasal route once daily fluticasone (FLONASE) 50 MCG/ACT nasal spray instill 1 spray into each nostril once daily 0 11/24/2016 Active hydroCHLOROthiazide 25 mg / triamterene 37.5 mg oral tablet (3 sources) Potassium-sparing Diuretic, Thiazide Diuretic Start: 01-09-2017 take 1 tablet by mouth once daily as needed triamterene-hydroc hlorothiazide (MAXZIDE-25) 37.5-25 MG per tablet Indications: Retention of fluid Take 1 tablet by mouth daily as needed (For water retention use only when needed) 30 tablet 3 01/09/2017 Active ibuprofen 800 mg oral tablet (16 sources) Nonsteroidal Anti-inflammatory Drug Start: 11-01-2023 End: 12-10-2024 take 1 tablet by mouth in the morning, then take 1 tablet by mouth in the evening, then take 1 tablet by mouth at bedtime ibuprofen 800 MG tablet Indications: Chronic bilateral low back pain without sciatica Take 1 tablet (800 mg) by mouth in the morning and 1 tablet (800 mg) in the evening and 1 tablet (800 mg) before bedtime. 90 tablet 11/01/2023 12/10/2024 Discontinued (Ineffective) levothyroxine sodium 0.025 mg oral tablet (16 sources) l-Thyroxine Start: 01-09-2024 End: 01-08-2025 take 1 tablet by mouth before mealtime levothyroxine (Synthroid) 25 MCG tablet Indications: Other specified hypothyroidism Take 1 tablet (25 mcg) by mouth in the morning. Take before meals. 30 tablet 11 01/09/2024 01/08/2025 Active Liothyronine Sodium (NWMIRLW-A-LZKEYKIFH SODIUM) POWD (3 sources) take 3.75 mg by mouth once daily Liothyronine Sodium (TEQVCXS-X-YLPMDZK NE SODIUM) POWD Take 3.75 mg by mouth daily 0 Active loratadine 10 mg oral tablet (20 sources) loratadine (Claritin) 10 MG tablet 1 (one) time each day at the same time. Active Claritin Active Loratadine (CLAR ITIN PO) Take by mouth as needed 0 Active Medrol (Juan) 1 Pack (7 sources) Start: 09-06-2018 Start: 09-06-2018 Medrol (Juan) 1 Pack as directed Orally Aug, Not-Taking/PRN Start: 09-06-2018 Medrol (Juan) 1 Pack as directed Orally Aug, Not-Taking Start: 09-06-2018 Medrol (Juan) 1 Pack as directed Orally Aug, Active methylPREDNISolone (2 sources) Corticosteroid Start: 11-04-2024 methylPREDNISolone (MEDROL, JUAN,) 4 mg tablet follow package directions 21 tablet 11/04/2024 Active nystatin 179948 unt/ml oral suspension (3 sources) Polyene Antifungal Start: 12-25-2018 take 4 mL by mouth four times daily nystatin (MYCOSTATIN) 151441 UNIT/ML suspension Take 4 mLs by mouth 4 times daily 0 12/25/2018 Active omeprazole 40 mg delayed release oral capsule (9 sources) Proton Pump Inhibitor Start: 03-13-2023 take 1 capsule by mouth twice daily Start: 12-12-2016 take 2 capsules by m outh once daily before mealtime omeprazole (PRILOSEC) 20 MG delayed release capsule take 2 capsules by mouth once daily before A MEAL 0 12/12/2016 Active ondansetron 4 mg oral tablet (3 sources) Serotonin-3 Receptor Antagonist Start: 09-24-2024 take 1 tablet by mouth every eight hours as needed for nausea ondansetron (ZOFRAN) 4 mg tablet Take 1 tablet (4 mg total) by mouth every 8 (eight) hours as needed for nausea. 09/24/2024 Active predniSONE 20 mg oral tablet (10 sources) Start: 09-24-2024 End: 12-10-2024 take 1 tablet by mouth in the morning predniSONE (Deltasone) 20 MG tablet Indications: Polyarthralgia , Right wrist pain Take 1 tablet (20 mg) by mouth in the morning and 1 tablet (20 mg) before bedtime. 10 tablet 10/03/2024 12/10/2024 Discontinued ProAir HFA 108 (90 Base) MCG/ACT (6 sources) Start: 09-06-2018 take 2 puff(s) by inhalation every four to six hours as needed Start: 09-06-2018 take 2 puff(s) by in halation every four to six hours as needed ProAir HFA 108 (90 Base) MCG/ACT 2 puffs as needed Inhalation every 4-6 hrs Aug, Not-Taking/PRN Start: 09-06-2018 take 2 puff(s) by in halation every four to six hours as needed ProAir HFA 108 (90 Base) MCG/ACT 2 puffs as needed Inhalation every 4-6 hrs Aug, Not-Taking progesterone 200 mg oral capsule (14 sources) Progesterone take 1 capsule by mouth once daily progesterone 200 MG capsule Take 200 mg by mouth Daily Active Progesterone Samy ronized (PROGESTERONE PO) Take 0.[address] .25 ml subligual 0 Active Semaglutide (6 sources) Semaglutide 0.1m g Active 0.25 mg, 0.5 mg dose 1.5 ml semaglutide 1.34 mg/ml pen injector (4 sources) inject 0.4 mL by subcutaneous injection every week semaglutide (Ozempic) 2 MG/1.5ML solution pen-injector Inject under the skin 0.4mL once weekly Active Specialty Vitamins Products (MENOPAUSE RELIEF PO) (3 sources) take 3 tablets by mouth once daily Specialty Vitamins Products (MENOPAUSE RELIEF PO) Take 3 tablets by mouth nightly 0 Active spironolactone 100 mg oral tablet (14 sources) Aldosterone Antagonist Start: 024 spironolactone (Aldactone) 100 MG tablet 02/22/2024 Active tazarotene 0.5 mg/ml topical cream (3 sources) Retinoid Start: 018 TAZORAC 0.05 % cream APPLY A SMALL AMOUNT TO THE FACE EVERY NIGHT 0 01/22/2018 Active testosterone 100 mg drug implant (19 sources) Androgen testosterone imp lant as directed Implant Active Testosterone Act saqib thyroid (prison) 15 mg oral tablet (9 sources) Start: 01-02-2024 End: 01-01-2025 take 1 tablet by mouth once daily thyroid ([place] Thyroid) 15 MG tablet Indications: Hypothyroidism, unspecified type (CMS/HCC) , Encounter for wellness examination Take 1 tablet (15 mg) by mouth Daily 30 tablet 11 01/02/2024 04/05/2024 Discontinued [place] Thyroid A ctive Tirzepatide-Weight Management (ZEPBOUND SC) (9 sources) Tirzepatide-Weig ht Management (ZEPBOUND SC) Inject under the skin Active tiZANidine 2 mg oral tablet (1 source) Central alpha-2 Adrenergic Agonist Start: 5 tiZANidine (ZANAFLEX) 2 mg tablet Indications: Neck pain One tab at bed time 30 tablet 2 11/21/2024 Active valACYclovir 1000 mg oral tablet (5 sources) Herpesvirus Nucleoside Analog DNA Polymerase Inhibitor, Herpes Simplex Virus Nucleoside Analog DNA Polymerase Inhibitor, Herpes Zoster Virus Nucleoside Analog DNA Polymerase Inhibitor Start: 4 valACYclovir (Valtrex) 1 g tablet Take 1,000 mg by mouth in the morning and 1,000 mg in the evening. 07/19/2024 Active Start: 07-19-2024 take 1 tablet by juanita th in the morning, then take 1 tablet by mouth at bedtime valACYclovir (VALTREX) 1000 mg tablet Take 1 tablet (1,000 mg total) by mouth in the morning and 1 tablet (1,000 mg total) before bedtime. 07/19/2024 Active Vitamin D3 (6 sources) Vitamin D3 Activ e Problems Active Problems Problem Classification Problem Date Documented Da te Episodic/Chronic Abdominal pain (1 source) Epigastric pain; Translations: [Epigastric pain] Onset: 05-25-2023 Episodic Allergic reactions (1 source) Allergy status to penicillin; Translations: [Allergy status to penicillin] Onset: 08-02-2018 Episodic Esophageal disorders (8 sources) Gastro-esophageal reflux disease without esophagitis; Translations: [Gastroesophageal reflux disease] Onset: 08-02-2018 Chronic Immunizations and screening for infectious disease (6 sources) Encounter for screening for other viral diseases; Translations: [Anti-nuclear factor positive] Onset: 04-22-2021 Resolved: 04-22-2021 Episodic Menopausal disorders (13 sources) Perimenopausal state; Translations: [Menopausal and female climacteric states] Onset: 01-19-2023 01-19-2023 Chronic Mycoses (2 sources) Candidiasis of vulva; Translations: [Candidal stomatitis] Episodic Osteoarthritis (5 sources) Arthritis of right wrist; Translations: [Primary osteoarthritis, right wrist] Onset: 10-24-2024 10-24-2024 Chronic Other acquired deformities (2 sources) Acquired deformity of nose; Translations: [Acquired deformity of nose] Onset: 08-02-2018 Episodic Other gastrointestinal disorders (6 sources) Dysphagia; Translations: [Dysphagia, unspecified] Episodic Other gastrointestinal disorders (1 source) Dysphagia, unspecified Episodic Other nervous system disorders (2 sources) 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 Chronic Other nervous system disorders (4 sources) Paresthesia of foot ; Translations: [Other disturbances of skin sensation] 09-26-2024 Episodic Other non-traumatic joint disorders (4 sources) Pain of right wrist; Translations: [Pain in right wrist] 09-26-2024 Episodic Other non-traumatic joint disorders (2 sources) Multiple joint pain; Translations: [Pain in unspecified joint] 10-03-2024 Episodic Other upper respiratory disease (13 sources) Chronic laryngitis; Translations: [Chronic laryngitis] Onset: 01-19-2023 01-19-2023 Chronic Other upper respiratory disease (2 sources) Deviated nasal septum; Translations: [Deviated nasal septum] Onset: 08-02-2018 Episodic Other upper respiratory disease (2 sources) Hypertrophy of nasal turbinates; Translations: [Hypertrophy of nasal turbinates] Onset: 08-02-2018 Episodic Residual codes; unclassified (2 sources) Encounter for cosmetic surgery; Translations: [Encounter for cosmetic surgery] Onset: 08-02-2018 Episodic Residual codes; unclassified (2 sources) Human leukocyte antigen B27 test positive; Translations: [Genetic susceptibility to other disease] Onset: 11-21-2024 11-21-2024 Episodic Residual codes; unclassified (1 source) Genetic susceptibility to other disease; Translations: [Genetic susceptibility to other disease] Onset: 11-21-2024 Episodic Spondylosis; intervertebral disc disorders; other back problems (8 sources) Cervical arthritis; Translations: [Arthritis of facet joint of cervical spine] 12-10-2024 Chronic Spondylosis; intervertebral disc disorders; other back problems (9 sources) Chronic low back pain; Translations: [Chronic bilateral low back pain without sciatica] Onset: 11-21-2024 09-26-2024 Episodic Thyroid disorders (15 sources) Hypothyroidism; Translations: [Hypothyroidism, unspecified] Onset: 01-19-2023 01-19-2023 Chronic Unclassified (3 sources) Patient encounter status; Translations: [Encounter for screening mammogram for breast cancer] Past or Other Problems Problem Classification Problem Date Documented Da te Episodic/Chronic Headache; including migraine (13 sources) Tension-type headache; Translations: [Tension-type headache, unspecified, not intractable] Onset: 01-19-2023 Resolved: 04-25-2023 04-25-2023 Chronic Other gastrointestinal disorders (3 sources) Heartburn; Translations: [Heartburn] Onset: 07-22-2013 Episodic Other nervous system disorders (13 sources) Finding related to ability to move; Translations: [Other abnormalities of gait and mobility] Onset: 01-19-2023 01-19-2023 Episodic Other screening for suspected conditions (not mental disorders or infectious disease) (12 sources) Patient encounter status; Translations: [Encounter for screening for malignant neoplasm of colon] Onset: 04-05-2024 04-05-2024 Episodic Other upper respiratory disease (13 sources) Hoarse; Translations: [Dysphonia] Onset: 01-19-2023 01-19-2023 Episodic Results Test Name Value Interpretation Reference Range Facility XR SPINE CERVICAL 4 OR 5 VWS on 11-25-2024 XR SPINE CERVICAL 4 OR 5 VWS XR SPINE CERVICAL 4 OR 5 VWS XR SPINE CERVICAL 4 OR 5 VWS History: Neck pain Findings: There is no fracture or destructive lesion. Impression: * No acute findings. * Diffuse disc disease and facet arthritis * Unremarkable oblique views * Consider MRI if you would like to assess for stenosis and/or radiculopathy or other occult process. Finalized by Fabio Martines MD on 11/25/2024 8:15 PM Normal [facility] CRP [Mass/Vol]on 10-24-2024 C REACTIVE PROTEIN 0.7 mg/dL Normal 0.000-0.744 [facility] Comment on above: Performed By: #### 1 988-5, 4485-9, 4498-2, 61802-2, ENAP #### [facility] ([id number]) [address], [address] [place] [address] Complement C3 [Mass/Vol]on 0 10-24-2024 COMPLEMENT C3 128 mg/dL Normal 86-184 [facility] Comment on above: Performed By: #### 1 988-5, 4485-9, 4498-2, 60135-2, ENAP #### [facility] ([id number]) [address], [address] [place] [address] Complement C4 [Mass/Vol]on 0 10-24-2024 COMPLEMENT C4 35 mg/dL Normal 16-47 [facility] Comment on above: Performed By: #### 1 988-5, 4485-9, 4498-2, 27408-6, ENAP #### [facility] ([id number]) [address], [address] [place] [address] DNA double strand IgG IF Cri thidia luciliae (S) [Titer]on 10-24-2024 Crithidia Interpretation See Note Normal [facility] Comment on above: Result Comment: NOTE Testing for dsDNA antibody by Crithidia IFA was negative. Test Performed by: [facility] [address] [place] [address] Black Belt: Vikram Carter Ph.D.; CLIA# [id number] Performed By: #### 5 8466-4 #### [facility] ([id number]) [address], dsDNA Ab by Crithidia IFA, IgG, S Negative Normal Negative [facility] Comment on above: Performed By: #### 5 8466-4 #### [facility] ([id number]) [address] [place] [address] MIGUELINA Walter PANELon 10-24-2024 ANTI-GRAMAJO AB IGG <0.2 Normal <1.0 [facility] [place] [facility] Comment on above: Performed By: #### 1 988-5, 4485-9, 4498-2, 38314-6, ENAP #### [facility] ([id number]) [address], [address] [place] [address] JO1 ANTIBODY <0.2 Normal <1.0 [facility] Comment on above: Performed By: #### 1 988-5, 4485-9, 4498-2, 98287-9, ENAP #### [facility] ([id number]) [address], [address] [place] [address] STUDENT LIFE COORDINATOR ANTIBODY IGG <0.2 Normal <1.0 [facility] Comment on above: Performed By: #### 1 988-5, 4485-9, 4498-2, 89288-8, ENAP #### [facility] ([id number]) [address], [address] [place] [address] SCL 70 ANTIBODY <0.2 Normal <1.0 [facility] Comment on above: Performed By: #### 1 988-5, 4485-9, 4498-2, 15918-9, ENAP #### [facility] ([id number]) [address], [address] [place] [address] SSA ANTIBODY <0.2 Normal <1.0 [facility] Comment on above: Performed By: #### 1 988-5, 4485-9, 4498-2, 64491-4, ENAP #### [facility] ([id number]) [address], [address] [place] [address] SSB ANTIBODY <0.2 Normal <1.0 [facility] [place] [facility] Comment on above: Performed By: #### 1 988-5, 4485-9, 4498-2, 25115-3, ENAP #### [facility] ([id number]) [address], [address] [place] [address] ESR Photometric method (Bld) [Velocity]on 10-24-2024 ESR, ERYTHROCYTE SEDIMENTATION RATE 4 mm/h Normal 0-30 [facility] Comment on above: Performed By: #### 1 988-5, 4485-9, 4498-2, 85203-8, ENAP #### [facility] ([id number]) [address], [address] [place] [address] Laboratory comment Soy (Repo rt)on 10-24-2024 UNLISTED LAB TEST Sent to reference lab Normal [facility] Comment on above: Performed By: #### 5 8466-4 #### [facility] ([id number]) [address] [place] [address] Mammogram Digital Screen Bilat + Tomoon 09-09-2024 MG Mammogram Digital Screen Bilat + Boni #[id number] - MG MAMMOGRAM DIGITAL SCREEN BILAT + BONI BILATERAL DIGITAL SCREENING MAMMOGRAM 3D/2D WITH CAD: 09/06/2024 CLINICAL: Screening Mammogram. Comparison is made to exams dated: 08/25/2023 mammogram, 08/09/2022 mammogram, 06/04/2021 mammogram - [facility], 03/23/2020 mammogram, and 03/11/2019 mammogram - [facility]. The breasts are extremely dense, which lowers the sensitivity of mammography. Current study was also evaluated with a Computer Aided Detection (CAD) system. No significant masses, calcifications, or other findings are seen in either breast. IMPRESSION: NEGATIVE There is no mammographic evidence of malignancy. A 1 year screening mammogram is recommended. (09/07/2025) This patient's calculated lifetime risk for development of breast cancer is 14.5%. The patient was notified of the results. Your patient's mammogram demonstrates that she has dense breast tissue, which could hide small abnormalities. In compliance with H.B. 394 Section 3702.40 the patient has been sent a letter which informs her that she has dense breast tissue and might benefit from supplementary screening tests depending on her individual risk factors. The patient may contact you if she has any questions or concerns. Investigation of a clinically suspicious lesion should not be precluded by the lack of specific imaging findings. 10-15% of breast cancers may not be detected on mammograms. The [employer] supports annual screening mammography starting at age 40. Neela Tavarez D.O. cw/penrad:09/09/2024 09:42:28 Tax Preparer(s): RT Haritha(R)(M), [facility] letter sent: New Mammo Normal B1/2 Mammogram BI-RADS: 1 Negative Final Dictated by: Neela Tavarez DO Signed by: Neela Tavarez DO Signed (Electronic Signature): 09/09/2024 9:42 am (If Report Is Signed, Electronically Signed in Other Vendor System) Normal [facility] Gynecology Office/Clinic Not lyndsey 09-06-2024 Gynecology Office/Clinic Note Chief Complaint Annual History of Present Illness Pelvic Pain: No Painful Sex: No Abnormal Vaginal Discharge: No Abnormal Vaginal Bleeding: No Vaginal Dryness: No Vaginal Itch: No Vaginal Burning: No Vaginal Odor: No Hot Flashes: No Night Sweats: No Breast Lump: No Breast Pain: No Sexually Active: Yes Comments 09/02/24 13:32:00 49 y/o G0 . Annual. Last pap: 05/07/21 Neg. HPV Neg. Mammogram: 08/25/23 Neg. Dense. Lifetime risk 16.9%. Scheduled today. 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 Additional Details Menstrual History Reason for No Menstrual PeriodsMenopause Age of [id number] Age Menses [id number] Contraception Contraception TypeVasectomy Review of Systems Head Migraines: No Headaches: No Eyes Corrective Lenses: Glasses Corrective Lenses comment: readers Ears, Nose, Throat Congestion: No Vertigo: No Sore throat: No Nasal drainage: No Cardio Respiratory Peripheral edema: No Heart Irregularity: No Chest Pain: No Shortness of Breath: No Gastrointestinal Bloating: No Reflux/heartburn: No Abdominal Pain: No Change in bowel habits: No Urinary Urinary Incontinence: No Urinary frequency: No Nocturia: No Urgency: No Painful urination: No Musculoskeletal Back Pain: No Muscle Aches: Yes Joint Pain: Yes Integumentary Lesions: No Moles: No Acne: No Hair changes: No PsychoSocial Sleep Problems: No Anxiety: No Suicidal Ideation: No Homicidal Ideation: No Depression: No Hematologic/Lymphatic Thromboembolism: No Bruising: No Bleeding tendencies: No Endocrine Abnormal weight gain: No Abnormal weight loss: No Fatigue: No Physical Exam Vitals & Measurements BP: 112/80 HT: 175 cm WT: 66.3 kg WT: 66.3 kg (Dosing) BMI: 21.65 Additional Vitals BP Position/Location: Sitting, Right arm General: Alert and oriented, well nourished, no acute distress. Eye: PERRL, EOMI, normal conjunctiva. HEENT:Normocephalic, clear tympanic membranes, normal hearing, moist oral mucosa, no scleral icterus, no sinus tenderness. Neck: Supple, non-tender, no carotid bruits, no JVD, no lymphadenopathy. Lungs: Clear to auscultation and percussion, non-labored respiration. Heart: Normal rate, regular rhythm, no murmur, gallop or edema. Abdomen: Soft, non-tender, non-distended, normal bowel sounds, no masses. Musculoskeletal: Normal range of motion and strength, no tenderness or swelling. Skin: Skin is warm, dry and pink, no rashes or lesions. Neurologic: Awake, alert, and oriented X3, CN II-XII intact. Psychiatric: Cooperative, appropriate mood and affect. Breast exam: No fibrocystic changes noted bilaterally, no masses, tenderness, skin changes or nipple discharge. External Genitalia: Normal urethral meatus, no lesions, vulvar skin intact. Genitourinary: Normal vaginal mucosa, no lesions or abnormal discharge, cervix intact without lesions or bleeding. No cystocele or rectocele. Bimanual exam: Normal sized, non-tender, mobile uterus. No adnexal tenderness or masses. Assessment/Plan 1. Encounter for gynecological examination (general) (routine) without abnormal findings Annual exam 1. Continue with breast self-exam/mammogram/colo noscopy screening 2. Maintain a low-fat, low sugar diet 3. Weight management, BMI, exercise (30 minutes daily) 4. Water intake (64 oz daily) and decrease caffeine 5. Calcium supplement with Vitamin D 6. Discussed menopausal symptom management F/u 1 year for annual exam and she will call with any questions/problems prior to next appt. Medical Decision Making Chronic conditions NOT treated during this visit that affected my overall medical decision making: none Treatment plans discussed but not opted for at this time: see above Prescribed medication that requires intensive monitoring for toxicity: no I have reviewed the patient?s medication list for medication interactions/contraindic ations and/or for upcoming procedures: no Time Spent with the Patient I have personally spent 25 minutes on this date, directly related to today's patient visit, including pre and post visit work, for this date of service. Time listed does not include time spent on separately billable services. OB History History (0,0,0,0) No previous pregnancies history have been recorded Women's Health Screening Last Pap Smear Diagnosis 05/07/21 15:48:00 NEGATIVE FOR INTRAEPITHELIAL LESION OR MALIGNANCY. Last HPV HPV DNA Scrn: Negative. (05/07/21 15:48:00) Bone Density No qualifying data available. Mammograms MG Mammogram Digital Screen Bilat +Boni 08/25/23 10:39:00 #[id number] - MG MAMMOGRAM DIGITAL SCREEN BILAT + BONI BILATERAL DIGITAL SCREENING SUDHIR (more content not included)... Normal [facility] HCG,Urineon 05-25-2023 Beta HCG ( test) Ql (U) Negative Normal [facility] Comment on above: Result Comment: PERF ORMED BY: [place] [address] PATHOLOGIST LOGISTICS SERVICE REPRESENTATIVE LETHA GREY M.D. Performed By: #### U HCG #### [address] [place] 05-25-2023 L ---- Specimen: [id number] Received: 05/25/23 Status: HI Fisher Num: [id number] Spec Type: Surgical Subm Dr: Franci Rangel MD Tissues: A Duodenum - Biopsy (DUODENUM BX) B GASTRIC FOR HP (GASTRIC HP) C Esophagus Biopsy (ESOPHAGUS BX) D Esophagus Biopsy (ESOPHAGUS PATCHES BX) Procedures: HE/8, Gross/Micro L4/4, H PYLORI, IHC First AB Age/ Patient Sex Location Account Attending Physician Ally Gonzalez 47/F [id number] Franci Rangel MD SPEC NUM: [id number] RECD: 05/25/23 STATUS: HI FISHER NUM: [id number] RODOLFO: 05/25/23- SUBM DR: Franci Rangel MD ENTERED: 05/25/23-[address] [facility] [address]: SPEC TYPE: Surgical DEPT: S ORDERED: HE/8, Gross/Micro L4/4, H PYLORI, IHC First AB ORDERED: HE/8, Gross/Micro L4/4, H PYLORI, IHC First AB Pathological Diagnosis A. Duodenum, biopsy: - Duodenal mucosa within normal limits B. Stomach, biopsy: - Gastric antral and fundic gland mucosa with mild chronic nonspecific gastritis - Negative for intestinal metaplasia or dysplasia - Negative for H. pylori (immunohistochemical staining) C. Esophagus, biopsy: - Squamous esophageal and cardiac mucosa with chronic nonspecific cardio-esophagitis - Negative for intestinal metaplasia or dysplasia D. Esophagus, patches, biopsy: - Squamous esophageal mucosa with fred esophagitis - No columnar mucosa identified Note: Appropriate positive controls for H. pylori immunohistochemical staining reviewed. Specimen: [id number] Received: 05/25/23 Status: HI Fisher Num: [id number] Spec Type: Surgical Subm Dr: Franci Rangel MD Tissues: A Duodenum - Biopsy (DUODENUM BX) B GASTRIC FOR HP (GASTRIC HP) C Esophagus Biopsy (ESOPHAGUS BX) D Esophagus Biopsy (ESOPHAGUS PATCHES BX) Procedures: HE/8, Gross/Micro L4/4, H PYLORI, IHC First AB Patient: Ally Gonzalez [id number] (Continued) Specimen: [id number] Received: 05/25/23 (Continued) Signed (signature on file) Brown Christian MD 05/29/23 1259 Specimen: [id number] Received: 05/25/23 Status: HI Fisher Num: [id number] Spec Type: Surgical Subm Dr: Franci Rangel MD Tissues: A Duodenum - Biopsy (DUODENUM BX) B GASTRIC FOR HP (GASTRIC HP) C Esophagus Biopsy (ESOPHAGUS BX) D Esophagus Biopsy (ESOPHAGUS PATCHES BX) Procedures: HE/8, Gross/Micro L4/4, H PYLORI, IHC First AB Patient: Ally Gonzalez [id number] (Continued) Specimen: [id number] Received: 05/25/23 (Continued) Clinical Information Dyspepsia, rule out sprue, rule out H. pylori, rule out Solorzano's Gross Description A. Received in formalin labeled with the patient's name, date of and duodenum biopsy is one walter tissue measuring 0.5 x 0.3 x 0.2 cm. Entirely submitted in one cassette labeled A1. B. Received in formalin labeled with the patient's name, date of and gastric biopsy are two walter tissues measuring 0.3 x 0.2 x 0.2 cm and 0.5 x 0.3 x 0.2 cm. Entirely submitted in one cassette labeled B1. C. Received in formalin labeled with the patient's name, date of and esophagus biopsy are two walter tissues averaging 0.3 x 0.2 x 0.1 cm. Entirely submitted in one cassette labeled C1. D. Received in formalin labeled with the patient's name, date of and esophagus patches are four walter tissues ranging from 0.1 cm to 0.5 x 0.3 x 0.1 cm. Entirely submitted in one cassette labeled D1. Microscopic Description A. Two H E slides reviewed. The microscopic examination confirms the diagnosis. B. Two H E slides reviewed. The microscopic examination confirms the diagnosis. C. Two H E slides reviewed. The microscopic examination confirms the diagnosis. D. Two H E slides reviewed. The microscopic examination confirms the diagnosis. CPT Codes 83765j6 Specimen: [id number] Rec (more content not included)... Normal [facility] COVMANA Quick Testingon 2020 Result Negative [employer] Other [facility] BONI DIGITAL SCREEN BILChandrakant Trevizo 03-23-2020 [facility] BONI DIGITAL SCREEN BILATERAL EXAMINATION: SCREENING DIGITAL BILATERAL MAMMOGRAM WITH TOMOSYNTHESIS 03/23/2020 TECHNIQUE: Screening mammography was performed with tomosynthesis including MLO and CC views of the bilateral breasts. Computer aided detection was used for the interpretation of this exam. COMPARISON: March 11, 2019, March 05, 2018, February 27, 2017 HISTORY: Screening. FINDINGS: The breasts are heterogeneously dense, which may obscure small masses. Within that limitation, there is no dominant mass, suspicious microcalcification, or area of architectural distortion. IMPRESSION: No mammographic evidence of malignancy. BIRADS: BIRADS - CATEGORY 1 Negative, no evidence of malignancy. Normal interval follow-up is recommended in 12 months. OVERALL ASSESSMENT - NEGATIVE A letter of notification will be sent to the patient regarding the results. [employer] recommends annual mammograms for women 40 years and older. Interpreted by: Polo Alberts MD Signed by: Polo Alberts MD 03/23/20 Final result Normal [facility] No mammographic evid ence of malignancy. BIRADS: BIRADS - CATEGORY 1 Negative, no evidence of malignancy. Normal interval follow-up is recommended in 12 months. OVERALL ASSESSMENT - NEGATIVE A letter of notification will be sent to the patient regarding the results. [employer] recommends annual mammograms for women 40 years and older. [employer], [employer] EXAMINATION: SCREENI NG DIGITAL BILATERAL MAMMOGRAM WITH TOMOSYNTHESIS 03/23/2020 TECHNIQUE: Screening mammography was performed with tomosynthesis including MLO and CC views of the bilateral breasts. Computer aided detection was used for the interpretation of this exam. COMPARISON: March 11, 2019, March 05, 2018, February 27, 2017 HISTORY: Screening. FINDINGS: The breasts are heterogeneously dense, which may obscure small masses. Within that limitation, there is no dominant mass, suspicious microcalcification, or area of architectural distortion. [facility]- [place], [place] Archie, [employer] Incoming Radiant Results From [employer]Pacs - 03/23/2020 2:27 PM EDT EXAMINATION: SCREENING DIGITAL BILATERAL MAMMOGRAM WITH TOMOSYNTHESIS 03/23/2020 TECHNIQUE: Screening mammography was performed with tomosynthesis including MLO and CC views of the bilateral breasts. Computer aided detection was used for the interpretation of this exam. COMPARISON: March 11, 2019, March 05, 2018, February 27, 2017 HISTORY: Screening. FINDINGS: The breasts are heterogeneously dense, which may obscure small masses. Within that limitation, there is no dominant mass, suspicious microcalcification, or area of architectural distortion. IMPRESSION: No mammographic evidence of malignancy. BIRADS: BIRADS - CATEGORY 1 Negative, no evidence of malignancy. Normal interval follow-up is recommended in 12 months. OVERALL ASSESSMENT - NEGATIVE A letter of notification will be sent to the patient regarding the results. [employer] recommends annual mammograms for women 40 years and older. [facility] [place] Cult,Genitalon 09-08-2019 Cult,Genital Specimen Description .VAGINA Special Requests NOT REPORTED Culture NORMAL URO-GENITAL KRISTINA NEGATIVE FOR NEISSERIA GONORRHOEAE NEGATIVE FOR GROUP B STREPTOCOCCI Report Status FINAL 09/08/2019 Normal [facility] Comment on above: Performed By: #### G EC #### [employer] [address] [place] [id number] Black Belt: Chiki Medina MD [facility] [address] [place] [address] Black Belt: Froylan Quarles MD Cytologyon 09-05-2019 Cytology (NOTE) [id number] [facility] [employer] [facility] ANATOMIC PATHOLOGY [address] [facility]. [place], [place] [address] GYNECOLOGIC CYTOLOGY REPORT Patient Name: ALLY GONZALEZ MR#: [id number] Specimen #[id number] Source: 1: Cervical material, (ThinPrep vial, Imaging-assisted review) Clinical History Z01.419 Routine pediatric hospitalist exam without abnormal findings High Risk HPV DNA testing is requested if the diagnosis is ASC-US LMP: 08/26/2019 INTERPRETATION Cervical material, (ThinPrep vial, Imaging-assisted review): Specimen Adequacy: Satisfactory for evaluation. -Endocervical/transforma tion zone component is absent. Descriptive Diagnosis: Negative for intraepithelial lesion or malignancy. Aerodynamics Teacher: KRISTINA Magallon(ASCP) Electronically Signed Out nataliia/09/16/2019 Normal [facility] Comment on above: Performed By: #### P PPVP #### [id number] [place] [address] Black Belt: Chiki Medina MD [facility] DIGITAL SCREEN SELF REFE RRAL W OR WO CAD BILATERALon 03-11-2019 No mammographic evid ence of malignancy. BI-RADS 1 BIRADS: BIRADS - CATEGORY 1 Negative, no evidence of malignancy. Normal interval follow-up is recommended in 12 months. OVERALL ASSESSMENT - NEGATIVE A letter of notification will be sent to the patient regarding the results. [employer] recommends annual mammograms for women 40 years and older. [place], [place] EXAMINATION: BILATER AL DIGITAL SCREENING MAMMOGRAM, 03/11/2019 TECHNIQUE: CC and MLO views of the left and right breasts were obtained. Computer aided detection was utilized in the interpretation of this exam. 3D tomosynthesis images were obtained. COMPARISON: March 05, 2018, February 27, 2017 HISTORY: Screening. FINDINGS: The breasts are extremely dense. There is no suspicious mass, suspicious microcalcification, or area of architectural distortion. [place], [place] Archie, Mhpn Incoming Radiant Results From [employer]Pacs - 03/11/2019 2:38 PM EDT EXAMINATION: BILATERAL DIGITAL SCREENING MAMMOGRAM, 03/11/2019 TECHNIQUE: CC and MLO views of the left and right breasts were obtained. Computer aided detection was utilized in the interpretation of this exam. 3D tomosynthesis images were obtained. COMPARISON: March 05, 2018, February 27, 2017 HISTORY: Screening. FINDINGS: The breasts are extremely dense. There is no suspicious mass, suspicious microcalcification, or area of architectural distortion. IMPRESSION: No mammographic evidence of malignancy. BI-RADS 1 BIRADS: BIRADS - CATEGORY 1 Negative, no evidence of malignancy. Normal interval follow-up is recommended in 12 months. OVERALL ASSESSMENT - NEGATIVE A letter of notification will be sent to the patient regarding the results. [employer] recommends annual mammograms for women 40 years and older. [facility]- [place], [place] History and Physical - Surge ry > 30 dayson 08-02-2018 History and Physical - Surgery > 30 days History of Present Illness: /Lactating: Are You no Are You Currently Breastfeedingno History Present Illness: Reason for surgery: external nasal deformity HPI: 43y/o female presenting for rhinolasty. Allergies: Allergies: Granite: Blistering Dis. penicillin: Unknown Home Medication Review: Home Medications Reviewed: yes Impression/Procedure: Impression and Planned Procedure: External and internal nasal deformity - discussed consent, RBAL, possible open possible nostril incisions - asnwered all questions, discussed preop and postop care and expectations - gave postop instructions verbally and written Vital Signs: Temperature C: 36.7 degrees C Temperature F: 98 degrees F Heart Rate: 86 beats per minute Respiratory Rate: 16 breath per minute Blood Pressure Systolic: 105 mm/Hg Blood Pressure Diastolic: 58 mm/Hg Physical Exam: Constitutional: Well developed, awake/alert/oriented x3, no distress, alert and cooperative Eyes: PERRL, EOMI, clear sclera ENMT: mucous membranes moist, no apparent injury, no lesions seen Head/Neck: Neck supple, no apparent injury, thyroid without mass or tenderness, No JVD, trachea midline, no bruits Respiratory/Thorax: Patent airways, CTAB, normal breath sounds with good chest expansion, thorax symmetric Cardiovascular: Regular, rate and rhythm, no murmurs, 2+ equal pulses of the extremities, normal S 1and S 2 Gastrointestinal: Nondistended, soft, non-tender, no rebound tenderness or guarding, no masses palpable, no organomegaly, +BS, no bruits Genitourinary: deferred Musculoskeletal: ROM intact, no joint swelling, normal strength Extremities: normal extremities, no cyanosis edema, contusions or wounds, no clubbing Neurological: alert and oriented x3, intact senses, motor, response and reflexes, normal strength Skin: Warm and dry, no lesions, no rashes Signatures/Attestation/C ertification: Attending Provider Inpatient Certification StatementN/A - observation patient/other outpatient visits Electronic Signatures: Mateo Cee) (Signed 02-Aug-2018 08:15) Authored: History of Present Illness, Allergies, Home Medication Review, Impression/Procedure, Physical Exam, Signatures/Attestation/C ertification Last Updated: 02-Aug-2018 08:15 by Mateo Cee) Normal [facility] Preop Checkliston 08-02-2018 Preop Checklist Preop Checklist: Preop Checklist: Arrival [id number] Arrival Time06:41 Procedure TypeRhinoplasty, septoplasty, turbinate surguery NPO [id number] 16:00 ID Band Onyes Allergy Bandyes Consent Signedpending H&P Completepending Anesthesia Assessment Completedpending SCD's Appliedno Denturesnot applicable Prostheticsnot applicable Hearing Aidsnot applicable Valuables Securedunder cart Glasses / Contactsnot applicable Cardiovascular Assessment: Apicalregular Radial Pulsespalpable Extremitieswarm Respiratory Assessment: Respirationsunlabored regular Air Exchangeequal, good Breath Soundsclear Neurological Assessment: Level of Consciousnessalert, oriented Mobilitymoves all extremities Able to Express Selfyes Age Appropriateyes Emotional Statuscalm Preop Education: Surgical Site Infection Preventionyes Pain Scales and Managementyes Language / Communication: Language / CommunicationEnglish Electronic Signatures: Juan Garcia (RN) (Signed 02-Aug-2018 06:48) Authored: Preop Checklist Last Updated: 02-Aug-2018 06:48 by Juan Garcia (CHEN) Normal [facility] Patient Profile - Preop v2on 07-19-2018 Protein mass conc Profile: Initial Info: How to be AddressedCary Spoken Language PreferredEnglish Are you currently using the Personal Electronic Health Record or Ark[employer]coStartno Are you interested in learning more about [facility] for the management of your healthnot at this time Stated Reason for Admissionseptoplasty, rhinoplasty Primary Contact Name and NumberMike [phone] Patient Belongingsnone Medications Brought to Hospitalno General Health: Weight in kg63.5 kilogram(s) Weight in zys961 pound(s) Weight Methodstated Height in cm177.8 centimeter(s) Height in feet5 feet Height in evtply01 inch(es) Height Methodstated BMI (kg/m2)20.086 square meter Patient or Family Member Reaction to AnesthesiaNo cough, cold, fever, vomiting or diarrhea in last 3 weeks. No family history of malignant hyperthermia. Does not get short of breath with heavy house or yard work or climbing 1 flight of stairs. Exercises regularly.; no previous reaction Blood Avoidance/Restrictionsno ne Previous Transfusion Reactionno Health Mgmt: Symptoms/Conditions Managed at Homegastrointestinal Are You Currently Breastfeedingno Gastrointestinal Symptoms/Conditions CommentGERD Are You no Barriers to Managing Healthnone Relationship/Environ: Lives Withspouse Living Arrangementshouse Resource/Environmental Concernsnone [facility] Anticipated at Transitionnone Substance: Current or Former Substance Use never: Cigarette/Tobacco, e-Cigarette/Vaping, Street Drugs YES: Alcohol Alcohol Use Statuscurrent alcohol Alcohol Use Additional Commentssocially Risk Screens: Advance Directive Medicalno During the past month, have you often been bothered by feeling down, depressed or hopelessno During the past month, have you often had little interest or pleasure in doing thingsno Have you had any thoughts of harming yourselfno Have you had any thoughts of harming anyone elseno Patient is Able to be Assessed for Learningyes Factors Influencing Readiness to Learninterest in learning Factors that Impact Ability to Learnnone Devices/Methods Used to Communicatenone Learning Preferencesverbal instruction; written material Cultural Considerationsnone Developmental Considerationsnone Oriental Orthodox Considerationsnone Other learner availableno [place] RiskPatient location auto qualifies him/her for HIGH RISK. Are there any cultural, spiritual, orthodox practices/values/needs that are important for us to knowno Pain Scalenumerical 0-10 Pain Scale Educationteaching provided Current Pain Level0 = None Acceptable Pain Level4 = Moderate Chronic Painno Information Review: Allergies, Home Meds and Significant Events have been Reviewed and Verified with Patient/Familyyes Allergy, Intolerance, Adverse Event: Allergies: Granite: Food, Blistering Dis., Active penicillin: Drug, Unknown, Active Significant Events: 19-Jul-2018 wisdom teeth extraction: Past Surgical History, Active 19-Jul-2018 ear tubes: Past Surgical History, Active 19-Jul-2018 T+ A: Past Surgical History, Active 19-Jul-2018 deviated septum: Past Surgical History, Active 19-Jul-2018 back surgery: Past Surgical History, Active Electronic Signatures: Madison BellRN) (Signed 19-Jul-2018 11:41) Authored: Profile, Additional Information Juan Garcia) (Signed 02-Aug-2018 06:53) Authored: Profile, Additional Information Last Updated: 02-Aug-2018 06:53 by Juan GarciaRN) Normal [facility] Progress Noteon 02-12-2018 HIM IP Note OR Clinical Operations Manager Normal [facility] Vital Signs Date Time Vital Sign Value Performing Clinician Facility 12-10-2024 08:31-0400 Body mass index (BMI) [Ratio] 19.86 kg/m2 Brenda Downs POLICE DETENTION ATTENDANT Work Phone: [facility] 12-10-2024 08:31-0400 Body temperature 96.91 [degF] Brenda Dwons POLICE DETENTION ATTENDANT Work Phone: [facility] 12-10-2024 08:31-0400 Body weight 62.78 kg Brenda Ugartedarius POLICE DETENTION ATTENDANT Work Phone: [facility] 12-10-2024 08:31-0400 Diastolic blood pressure 86 mm[Hg] Brenda Faustinmary anne POLICE DETENTION ATTENDANT Work Phone: [facility] 12-10-2024 08:31-0400 Heart rate 83 /min Brendaedison Downs POLICE DETENTION ATTENDANT Work Phone: [facility] 12-10-2024 08:31-0400 SaO2% (BldA) [Mass fraction] 99 % Brenda Raminmary anne POLICE DETENTION ATTENDANT Work Phone: [facility] 12-10-2024 08:31-0400 Systolic blood pressure 130 mm[Hg] Brenda Faustinmary anne POLICE DETENTION ATTENDANT Work Phone: [facility] 11-21-2024 14:16-0400 Respiratory rate 18 /min Hansel Galvan MD Work Phone: [facility] 10-24-2024 11:23-0400 Diastolic blood pressure 64 mm[Hg] Hansel Galvan MD Work Phone: [facility] 10-24-2024 11:23-0400 Respiratory rate 18 /min Hansel Galvan MD Work Phone: [facility] 10-24-2024 11:23-0400 Systolic blood pressure 112 mm[Hg] Hansel Galvan MD Work Phone: [facility] 10-03-2024 09:28-0400 Body height 177.8 cm Brenda Raminjeannieenburg POLICE DETENTION ATTENDANT Work Phone: [facility] 10-03-2024 09:28-0400 Body mass index (BMI) [Ratio] 20.49 kg/m2 Brenda Hackenburg POLICE DETENTION ATTENDANT Work Phone: [facility] 10-03-2024 09:28-0400 Body weight 64.77 kg Brenda Hajeannieenburg POLICE DETENTION ATTENDANT Work Phone: [facility] 10-03-2024 09:28-0400 Diastolic blood pressure 84 mm[Hg] Brenda Hajeannieenburg POLICE DETENTION ATTENDANT Work Phone: [facility] 10-03-2024 09:28-0400 Heart rate 91 /min Brenda Hajeannieenburg POLICE DETENTION ATTENDANT Work Phone: [facility] 10-03-2024 09:28-0400 SaO2% (BldA) [Mass fraction] 98 % Brenda Michaelenburg POLICE DETENTION ATTENDANT Work Phone: [facility] 10-03-2024 09:28-0400 Systolic blood pressure 134 mm[Hg] Brenda Hajeannieenburg POLICE DETENTION ATTENDANT Work Phone: [facility] 09-26-2024 09:58-0500 Body height 177.8 cm Brenda Hajeanineenburg POLICE DETENTION ATTENDANT Work Phone: [facility] 09-26-2024 09:58-0500 Body mass index (BMI) [Ratio] 20.81 kg/m2 Brenda Hackenburg POLICE DETENTION ATTENDANT Work Phone: [facility] 09-26-2024 09:58-0500 Body weight 65.77 kg Brenda Hajeannieenburg POLICE DETENTION ATTENDANT Work Phone: [facility] 09-26-2024 09:58-0500 Diastolic blood pressure 76 mm[Hg] Brenda Hackenburg POLICE DETENTION ATTENDANT Work Phone: [facility] 03-06-2025 09:58-0500 Heart rate 78 /min Brenda Downs POLICE DETENTION ATTENDANT Work Phone: [facility] 09-26-2024 09:58-0500 SaO2% (BldA) [Mass fraction] 97 % Brenda Downs POLICE DETENTION ATTENDANT Work Phone: [facility] 09-26-2024 09:58-0500 Systolic blood pressure 116 mm[Hg] Brenda Downs POLICE DETENTION ATTENDANT Work Phone: [facility] 04-05-2024 12:00-0400 Body height 177.8 cm Heidi Friedman MD Work Phone: [facility] 04-05-2024 12:00-0400 Body mass index (BMI) [Ratio] 21.38 kg/m2 Heidi Friedman MD Work Phone: [facility] 04-05-2024 12:00-0400 Body weight 67.59 kg Heidi Friedman MD Work Phone: [facility] 04-05-2024 12:00-0400 Diastolic blood pressure 70 mm[Hg] Heidi Friedman MD Work Phone: [facility] 04-05-2024 12:00-0400 Systolic blood pressure 110 mm[Hg] Heidi Friedman MD Work Phone: [facility] 08-18-2023 09:00-0500 Body weight 69.4 kg Nikolas Johnson Other [employer] Other 08-18-2023 09:00-0500 Diastolic blood pressure 78 mm[Hg] Nikolas Johnson Other [employer] Other 08-18-2023 09:00-0500 Systolic blood pressure 111 mm[Hg] Nikolas Johnson Other [employer] Other 03-13-2023 10:30-0400 Body height 175.26 cm Nikolas Johnson Other [employer] Other 03-13-2023 10:30-0400 Body mass index (BMI) [Ratio] 23.77 kg/m2 Nikolas Sepulvedaovanlara Other [employer] Other 03-13-2023 10:30-0400 Body weight 73.03 kg Nikolas Johnson Other [employer] Other 03-13-2023 10:30-0400 Diastolic blood pressure 69 mm[Hg] Nikolas Sepulvedaovanlara Other [employer] Other 03-13-2023 10:30-0400 Systolic blood pressure 111 mm[Hg] Nikolas Derickadolph Other [employer] Other Encounters Encounter Date Encounter Type Care Provider Facility Start: 12-10-2024 End: 12-10-2024 Bamboo flowsheet Brenda A Yareli POLICE DETENTION ATTENDANT Work Phone: [facility] Start: 12-10-2024 End: 12-10-2024 Bamboo flowsheet Brenda A Yareli POLICE DETENTION ATTENDANT Work Phone: [facility] Start: 12-10-2024 End: 12-10-2024 Office outpatient visit 25 minutes Brenda Downs POLICE DETENTION ATTENDANT Work Phone: [facility] Comment on above: Neck pain (Primary D x); Cervical arthritis; Radiculopathy affecting upper extremity; Facet arthritis of cervical region Start: 12-10-2024 End: 12-10-2024 ambulatory BRENDA Chandrakant DOWNS Not Available Start: 11-21-2024 End: 11-21-2024 Office outpatient visit 25 minutes Hansel Galvan MD Work Phone: [facility], A Department of [facility] Comment on above: HLA B27 positive (Pr imary Dx); Neck pain Start: 11-21-2024 End: 11-21-2024 ambulatory [facility] Start: 11-04-2024 End: 11-04-2024 Telephone encounter Margarita Rivera CMA [facility], A Department of [facility] Start: 10-24-2024 End: 10-24-2024 Office outpatient new 45 minutes Hansel Galvan MD Work Phone: [facility] Rheumatology, A Department of [facility] Comment on above: MATTIE positive (Primar y Dx); Arthritis of right wrist Start: 10-24-2024 End: 10-24-2024 ambulatory [facility] Start: 10-09-2024 End: 10-09-2024 ambulatory KENNY GALAVIZ Not Available Start: 10-03-2024 End: 10-03-2024 Bamboo flowsheet Brenda A Hackenburg POLICE DETENTION ATTENDANT Work Phone: [facility] Start: 10-03-2024 End: 10-03-2024 Bamboo flowsheet Brenda A Hackenburg POLICE DETENTION ATTENDANT Work Phone: [facility] Start: 10-03-2024 End: 10-03-2024 Office outpatient visit 25 minutes Brenda A Hackenburg POLICE DETENTION ATTENDANT Work Phone: [facility] Comment on above: Polyarthralgia (Prim katerin Dx); Right wrist pain Start: 10-03-2024 End: 10-03-2024 ambulatory BRENDA A HACKENBURG Not Available Start: 09-26-2024 End: 09-26-2024 Bamboo flowsheet Brenda A Hackenburg POLICE DETENTION ATTENDANT Work Phone: [facility] Start: 09-26-2024 End: 09-26-2024 Bamboo flowsheet Brenda A Hackenburg POLICE DETENTION ATTENDANT Work Phone: [facility] Start: 09-26-2024 End: 09-26-2024 Office outpatient visit 25 minutes Brenda A Hajeannieenburg POLICE DETENTION ATTENDANT Work Phone: [facility] Comment on above: Burning sensation of foot (Primary Dx); Chronic bilateral low back pain without sciatica; Hypothyroidism, unspecified type (CMS/HCC); Right wrist pain Start: 09-26-2024 End: 09-26-2024 ambulatory BRENDA Chandrakant HAJEANNIEENBURG Not Available Start: 09-24-2024 End: 09-24-2024 Bamboo flowsheet Brenda A Hackenburg POLICE DETENTION ATTENDANT Work Phone: [facility] Start: 09-24-2024 End: 09-24-2024 Bamboo flowsheet Brenda A Hackenburg POLICE DETENTION ATTENDANT Work Phone: [facility] Start: 09-06-2024 End: 09-06-2024 ambulatory Aileen Willard PA-C Facility:[facility] Start: 04-05-2024 End: 04-05-2024 Office outpatient new 45 minutes Heidi Centeno MD Work Phone: [facility] Comment on above: Encounter for screen ing for malignant neoplasm of colon Start: 04-05-2024 End: 04-05-2024 ambulatory HEIDI CENTENO V Not Available Start: 03-19-2024 End: 03-19-2024 Telephone encounter Shahida Jo MD Work Phone: [facility] Start: 03-15-2024 End: 03-15-2024 Telephone encounter Shahida Jo MD Work Phone: [facility] Start: 01-02-2024 End: 01-02-2024 ambulatory NESTOR HOOVER Not Available Start: 08-18-2023 End: 08-18-2023 ambulatory Nikolas Johnson Other [employer] Other Start: 08-18-2023 Office outpatient vi sit 15 minutes Nikolas Johnson [facility] Start: 07-18-2023 End: 07-18-2023 ambulatory Nikolas Johnson Other [employer] Other Start: 07-18-2023 Telephone encounter Nikolas Johnson [facility] Start: 06-01-2023 End: 06-01-2023 ambulatory Imad Asaad Other [employer] Other Start: 06-01-2023 Telephone encounter Imad Asaad [facility] Start: 05-25-2023 End: 05-25-2023 ambulatory Imad Asaad Facility:[facility] Start: 05-09-2023 End: 05-09-2023 ambulatory Nikolas Johnson Other [employer] Other Start: 05-09-2023 Telephone encounter Nikolas Johnson [facility] Start: 03-31-2023 End: 03-31-2023 ambulatory Nikolas Johnson Other [employer] Other Start: 03-31-2023 Telephone encounter Nikolas Johnson [facility] Start: 03-13-2023 End: 03-13-2023 ambulatory Nikolas Johnson Other [employer] Other Start: 03-13-2023 Office outpatient vi sit 15 minutes Nikolas Johnson [facility] Start: 06-11-2021 End: 02-19-[address] KATIA ZAMAN Facility: Start: 05-17-2021 ambulatory AILEEN WILLARD Facility:[facility] Start: 04-22-2021 Office outpatient vi sit 5 minutes Flakita Ram [facility] Start: 03-23-2020 End: 03-26-[address] [facility] Start: 03-23-2020 End: 03-25-2020 Subsequent hospital visit by physician [facility] Mammography [facility] Comment on above: Encounter for screen ing mammogram for breast cancer Start: 09-05-2019 End: 09-06-[address] [facility] Start: 09-05-2019 End: 09-05-2019 Subsequent hospital visit by physician Shahida Perdomo [facility] Comment on above: Candidal vulvitis; Well woman exam with routine gynecological exam Start: 03-11-2019 End: 03-13-2019 Subsequent hospital visit by physician [facility] Mammography Room At [facility] Comment on above: Breast cancer screen ing Start: 08-02-2018 End: 08-02-2018 Patient encounter procedure MATEO CEE Facility:[facility] Procedures Date Procedure Procedure Detail Performing Clinician Start: 05-08-2024 Colonoscopy Brenda aguilera POLICE DETENTION ATTENDANT Work Phone: Start: 03-23-2020 Screening mammograph y bi 2-view breast inc cad THOR HERNANDEZ Start: 03-23-2020 Screening mammograph y bi 2-view breast inc cad Thor Hernandez Work Phone: Start: 03-23-2020 Mammography Shahida meyers MD Work Phone: Start: 09-05-2019 Cul bact xcpt urine blood/stool aerobic isol THOR HERNANDEZ Start: 09-05-2019 Screen pap by lion rolon md supv THOR HERNANDEZ Start: 09-05-2019 Microscopic observat ion [Identifier] in Cervix by Cyto stain Shahida Jo MD Work Phone: Start: 03-11-2019 Screening digital br east tomosynthesis bi Thor Hernandez Work Phone: Start: 08-02-2018 Anesthesia nose & ac cessory sinuses nos MATEO CEE Start: 08-02-2018 Fracture nasal infer ior turbinate therapeutic MATEO CEE Start: 08-02-2018 Rhinoplasty primary w/major septal repair MATEO CEE Plan of Treatment Date Care Activity Detail Author Start: 05-08-2034 Screening for malignant neoplasm of colon [facility] Start: 03-24-2025 Influenza vaccination [facility] Start: 01-20-2025 Influenza vaccination Influenza Vaccine (#1) [facility] Comment on above: Postponed from 03/24/2024 (Supply/Drug S hortage) Start: 12-10-2024 End: 12-10-2025 MR Cervical spine WO contrast MR cervical spine wo contrast Imaging Routine Cervical arthritis Radiculopathy affecting upper extremity Facet arthritis of cervical region Expected: 12/10/2024, Expires: 12/10/2025 [facility] Work Phone: Comment on above: Expected: 12/10/2024, Expires: Start: 12-10-2024 End: 12-10-2024 Patient encounter procedure 12/10/2024 8:30 AM EDT Office [facility] [address] [place] [phone] Brenda Downs NP [address], [place] [phone] Arrived [facility] Comment on above: Arrived Start: 11-21-2024 End: 11-21-2024 Patient encounter procedure 11/21/2024 3:30 PM EDT [facility] Department of [address] [phone] [place] [address] [place] [id number] [facility] Rheumatology, A Department of [facility] Start: 11-21-2024 End: 11-21-2025 XR Cervical spine 4 or 5 Views [facility] Work Phone: Comment on above: Expected: 11/21/2024, Expires: Start: 10-24-2024 End: 10-24-2025 C-reactive protein C-reactive protein Lab Routine MATTIE positive Expected: 10/24/2024 (Approximate), Expires: 10/24/2025 [facility] Comment on above: Expected: 10/24/2024 (Approximate), Expi res: 10/24/2025 Start: 10-24-2024 End: 10-24-2025 Erythrocyte sedimentation rate Erythrocyte Sedimentation Rate (ESR) Lab Routine MATTIE positive Expected: 10/24/2024 (Approximate), Expires: 10/24/2025 [facility] [employer] Comment on above: Expected: 10/24/2024 (Approximate), Expi res: 10/24/2025 Start: 10-24-2024 End: 10-24-2025 Unlisted Lab Test Unlisted Lab Test Lab Routine MATTIE positive Expected: 10/24/2024, Expires: 10/24/2025 [employer] Work Phone: Comment on above: Expected: 10/24/2024, Expires: Start: 10-24-2024 End: 10-24-2024 Patient encounter procedure 10/24/2024 12:50 PM EDT Appointment [facility] [address] [place] [address] [facility] Start: 10-09-2024 End: 10-09-2024 Patient encounter procedure 10/09/2024 9:15 AM EDT Office Visit [facility] [address] [place] [phone] Kenny Galaviz, DPM [address] [place], [place] [phone] [facility] Start: 10-03-2024 End: 10-03-2025 CBC W Auto Differential panel - Blood CBC and differential Lab Routine Polyarthralgia Expected: 10/03/2024 (Approximate), Expires: 10/03/2025 [facility] Comment on above: Expected: 10/03/2024 (Approximate), Expi res: 10/03/2025 Start: 10-03-2024 End: 10-03-2025 Comprehensive metabolic 2000 panel - Serum or Plasma Comprehensive metabolic panel Lab Routine Polyarthralgia Expected: 10/03/2024 (Approximate), Expires: 10/03/2025 [facility] Comment on above: Expected: 10/03/2024 (Approximate), Expi res: 10/03/2025 Start: 10-03-2024 End: 10-03-2025 Erythrocyte sedimentation rate Sedimentation rate, automated Lab Routine Polyarthralgia Expected: 10/03/2024 (Approximate), Expires: 10/03/2025 [facility] Comment on above: Expected: 10/03/2024 (Approximate), Expi res: 10/03/2025 Start: 10-03-2024 End: 10-03-2025 Nuclear Ab [Titer] in Serum by Immunofluorescence MATTIE Lab Routine Polyarthralgia Expected: 10/03/2024 (Approximate), Expires: 10/03/2025 [facility] Work Phone: Comment on above: Expected: 10/03/2024 (Approximate), Expi res: 10/03/2025 Start: 10-03-2024 End: 10-03-2025 Rheumatoid factor [Units/volume] in Serum or Plasma Rheumatoid factor Lab Routine Polyarthralgia Expected: 10/03/2024 (Approximate), Expires: 10/03/2025 [facility] Comment on above: Expected: 10/03/2024 (Approximate), Expi res: 10/03/2025 Start: 10-03-2024 End: 10-03-2024 Patient encounter procedure 10/03/2024 9:30 AM EDT Office Visit [facility] [address] [place] [facility] [place] [phone] Brenda Downs NP [address] [place] [address] Arrived [facility] Comment on above: Arrived Start: 09-26-2024 End: 09-26-2024 Patient encounter procedure 09/26/2024 10:00 AM EST Office Visit [facility] [address] [place] [facility] [place] [phone] Brenda Downs POLICE DETENTION ATTENDANT [address] [place] [address] Arrived [facility] Comment on above: Arrived Start: 09-24-2024 End: 09-24-2024 Patient encounter procedure 09/24/2024 10:00 AM EST Office Visit [facility] [address] [place] [phone] Brenda Downs NP [address] [place] [address] Arrived [facility] Comment on above: Arrived Start: 2024 Administration of varicella zoster vaccine Zoster (Shingles) Vaccine (1 of 2) [facility] Start: 2024 Shingles Vaccine (1 of 2) Shingles Vaccine (1 of 2) [facility] Work Phone: Start: 03-24-2024 COVID-19 Vaccine () COVID-19 Vaccine ( season) [facility] Start: 03-24-2024 Influenza vaccination Influenza Vaccine (#1) [facility] Start: 09-05-2022 Screening for malignant neoplasm of cervix [facility] Start: 03-23-2021 Screening for malignant neoplasm of breast Mammogram [facility] Start: 02-12-2021 Cervical cancer screen Cervical cancer screen [place], [place] Start: 01-03-2021 Lipid panel Lipid screen [place] Start: 01-03-2021 Lipid screen Lipid screen [place] Start: 03-24-2020 Influenza vaccination Flu vaccine (#1) [place] Start: 03-24-2019 Influenza vaccination Flu vaccine (#1) [place] Start: 2004 Screening for malignant neoplasm of cervix HPV/Cotest [facility] Start: 1995 Screening for malignant neoplasm of cervix Pap Smear [facility] Start: 1993 DTaP,Tdap and Td Vaccines (1 - Tdap) DTaP,Tdap and Td Vaccines (1 - Tdap) [facility] Start: 1993 DTaP/Tdap/Td vaccine (1 - Tdap) DTaP/Tdap/Td vaccine (1 - Tdap) [place] Start: 1992 Adult BMI Screening Adult BMI Screening [facility] Start: 1986 Depression Screening Depression Screening [facility] Start: 1986 Tobacco [facility]ening [facility] Start: 1985 DTaP/Tdap/Td vaccine (1 - Tdap) DTaP/Tdap/Td vaccine (1 - Tdap) [employer] Phone: Start: 1974 Creatinine measurement Creatinine monitoring [facility], [place] Start: 1974 Creatinine monitoring Creatinine monitoring [place], [place] Start: 1974 Potassium monitoring Potassium monitoring [place], [place] Start: 1974 Screening for malignant neoplasm of colon [facility] End: 10-24-2025 C3 complement C3 complement Lab Routine MATTIE positive 1 Occurrences starting 10/24/2024 until 10/24/2025 [employer] Comment on above: 1 Occurrences starting 10/24/2024 until 10/24/2025 End: 10-24-2025 C4 complement C4 complement Lab Routine MATTIE positive 1 Occurrences starting 10/24/2024 until 10/24/2025 [employer] Comment on above: 1 Occurrences starting 10/24/2024 until 10/24/2025 End: 09-05-2019 Culture, Genital Culture, Genital Microbiology Routine Candidal vulvitis 1 Occurrences starting 09/05/2019 until 09/05/2019 [employer] Phone: Comment on above: 1 Occurrences starting 09/05/2019 until 09/05/2019 Culture, Genital Culture, Genita l Microbiology Routine Candidal vulvitis 09/05/2019 5:52 PM EST [employer] Phone: End: 09-05-2019 Cytopathology procedure, preparation of smear, genital source PAP SMEAR Lab Routine Well woman exam with routine gynecological exam 1 Occurrences starting 09/05/2019 until 09/05/2019 [employer] Phone: Comment on above: 1 Occurrences starting 09/05/2019 until 09/05/2019 End: 10-24-2025 MIGUELINA Panel MIGUELINA Panel Lab Routine MATTIE positive 1 Occurrences starting 10/24/2024 until 10/24/2025 [facility] Comment on above: 1 Occurrences starting 10/24/2024 until 10/24/2025 Immunizations Immunization Date Immunization Notes Care Provider James soliman 10-19-2020 Pfizer Purple Cap SARS-CoV-2 Vaccination Shahida Jo MD Work Phone: [facility] 09-28-2020 Pfizer Purple Cap SARS-CoV-2 Vaccination Shahida Jo MD Work Phone: [facility] Payers Date Payer Category Payer Commercial Managed C are - PPO [employer] [id number] 2022 Private [facility] Insurance [employer] [id number] 2022 Unknown [id number] 2019 Unknown [employer] M [employer] [address] xxxxxxxx 2019-Present [phone] [address] [place] [address] xxxxxxxx [id number] 2019 Unknown [id number]. [id number] 1974 Unknown [id number] 2.16.840.1.883197.3.579. 2.356 1974 Unknown [id number] 2.16.840.1.565649.3.579. 2.173 1974 Unknown [id number] 2.16.840.1.020575.3.579. 2.173 1974 Unknown [id number] 2.16.840.1.825927.3.579. 2.593 1974 Unknown [id number] 2.16.840.1.100644.3.579. 2.196 1974 Unknown [id number] 2.16.840.1.515854.3.579. 2.196 1974 Unknown [id number] 2.16.840.1.062186.3.579. 2.196 1974 Unknown [id number] 2.16.840.1.656493.3.579. 2.1286 1974 Unknown [id number] 2.16.840.1.711931.3.579. 2.1286 1974 Unknown [id number] 2.16.840.1.029732.3.579. 2.1286 1974 Unknown [id number] 2.16.840.1.531924.3.579. 2.1286 1974 Unknown [id number] 2.16.840.1.901564.3.579. 2.1259 1974 Unknown [id number] 2.16.840.1.186789.3.579. 2.1259 1974 Unknown [id number] 2.16.840.1.128739.3.579. 2.1259 1974 Unknown [id number] 2.16.840.1.594265.3.579. 2.1259 1974 Unknown [id number] 2.16.840.1.464283.3.579. 2.1259 1974 Unknown [id number] 2.16.840.1.084024.3.579. 2.1259 1959 Self-pay Unknown [id number] [id number]. 2.531 Social History Date Type Detail Facility Start: 09-05-2019 End: 01-19-2023 Tobacco smoking status NHIS Never smoker [place] Start: 09-05-2019 End: 12-10-2024 Alcohol intake Current drinker of alcohol (finding) [facility] [employer] Work Phone: Start: 07-22-2013 Alcohol Comment weekly [facility] [place] Start: 1974 Sex Assigned At Not on file [place] Start: 09-05-2019 End: 01-19-2023 Tobacco use and exposure Never used [place] Exposure to SARS-CoV -2 (event) Not sure [place] Start: 12-31-2018 End: 09-23-2024 Alcohol intake Yes [facility] Start: 04-05-2024 End: 09-23-2024 Alcoholic beverage intake [facility] Within the last year , have you been afraid of your partner or ex-partner? No [facility] How often do you att end sabianism or orthodox services? Patient declined [facility] Are you now , , , , never or living with a partner? [facility] How often to you hav e a drink containing alcohol? 2-4 times a month [facility] How many standard drinks containing alcohol do you have on a typical day? 1 or 2 [facility] How often do you hav e 6 or more drinks on 1 occasion? Never [facility] Do you feel stress - tense, restless, nervous, or anxious, or unable to sleep at night because your mind is troubled all the time - these days [OSQ] Only a little [facility] (I/We) worried wheth er (my/our) food would run out before (I/we) got money to buy more. Never true [facility] How hard is it for y ou to pay for the very basics like food, housing, medical care, and heating Not very hard [facility] Do you feel stress - tense, restless, nervous, or anxious, or unable to sleep at night because your mind is troubled all the time - these days [OSQ] Not at all [facility] Start: 09-24-2024 Alcohol Comment Caffine: 0 [facility] unknown [facility] Start: 02-26-2015 Sex Female (finding) [facility] Start: 12-10-2024 Alcohol Comment Caffine: 1 pop every 3 days [facility] Clinical Notes 04-22-2021 to 12-10-2024 Brenda Downs NP - 12/10/2024 8:30 AM EDTHansel Galvan MD - 11/21/2024 3:30 PM EDTTelephone Encounter - Margarita RiveraUYEN - 11/04/2024 10:05 AM EDT Note Date & Type Note Facility 12-10-2024 History of Presen t illness Narrative Images from the original note were not included. Ally Gonzalez is a 49 y.o. female presents with chief complaint of Neck Pain HPI: HPI History of Present Illness The patient presents for evaluation of neck pain. She has been experiencing persistent neck pain since 06/2024. A steam generating powerplant mechanic conducted a series of tests, all of which returned negative results, ruling out any autoimmune disease. However, radiographic imaging revealed the presence of degenerative disc disease and arthritis, likely contributing to her neck discomfort. She was advised to consult an rn document improvement specialist. She has expressed a preference for neurosurgical intervention over orthopedic surgery, should it be necessary. She has not undergone any MRI scans or physical therapy for her current condition. She is considering the use of peptides, specifically PDA, as an alternative treatment option. She has also discussed potential pain management strategies with her hormone doctor, who previously worked in pain management, including injections and ablation. She is open to surgical intervention if deemed necessary. She has been managing her pain with ibuprofen 400 mg, but was advised to increase the dosage to 800 mg. Despite taking the medication with food, she experienced gastrointestinal upset after a week of increased dosage and subsequently discontinued its use. She [...] GI intolerance Penicillins Other Reaction(s): Unknown 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 Thyroid PAST MEDICAL HISTORY: SOCIAL HISTORY SURGICAL [...] Right 2013 excision lesion NASAL SEPTUM SURGERY 2010 deviated septum NASAL SINUS SURGERY 07/2018 SPINE SURGERY TONSILECTOMY, ADENOIDECTOMY, BILATERAL MYRINGOTOMY AND TUBES TONSILLECTOMY 1977 REVIEW OF SYMPTOMS: Review of Systems Constitutional: Negative. HENT: Negative. Respiratory: Negative for cough, shortness of breath and wheezing. Cardiovascular: Negative for chest pain. Gastrointestinal: Negative for abdominal pain. Genitourinary: Negative. Musculoskeletal: Positive for neck pain. Skin: Negative. Neurological: Negative. OBJECTIVE: Vitals: 12/10/24 0831 Temp: 96.9 F Physical Exam Vitals and nursing note reviewed. [...] an alternative NSAID that is less irritating to the stomach. - An MRI has been ordered to further evaluate the condition. If the MRI results indicate the need for further intervention, a referral to a neurosurgeon will be considered. No follow-ups on file. documented in this encounter [facility] 11-21-2024 History of Presen t illness Narrative Images from the original note were not included. [address] [id number] Date of Service: 11/21/2024 Subjective: Ally Gonzalez is a 49 y.o. female who presents today for evaluation positive MATTIE. Patient is seen at the request of Shahida Jo MD. This is follow-up visit with this patient who is 49-year-old female patient presenting today as an established patient for follow-up of positive MATTIE, right wrist arthritis and neck pain was seen 1st time on 10/24/2024 Patient's history dates back to 09/26/2024 when she developed right wrist swelling with warmth and redness, she was put on 1 week steroid with good improvement , however pain came back and was given another course of steroid, last dose was 2 weeks ago, now has minimal pain but she has been having neck pain that started around June 2024, neck pain more in the morning and increase on movement for which she has been taking ibuprofen also. Denied history of bowel symptoms or urinary tract infection. Autoimmune /Systemic screening negative Raynaud's, negative for oral/ ocular sicca, recurrent oral ulcers, no alopecia, no photosensitivity, no skin lesions, no butterfly rash Was put on Prednisone 20 mg 1 month ago with good improvement No history of cytopenia, or pericarditis, pleuritis or DVT/PE Systemic involvement such as anorexia, wt loss, focal swelling, recurrent unexplained fever. Current medications including thyroxine Past medical past hypothyroidism Lab results done on 10/03/2024 ,MATTIE 1:80 , CBC, CMP normal, rheumatoid factor negative . Lab tests 10/24/2024 complements normal, ESR CRP normal, anti DNA by crithidia negative, MIGUELINA panel negative Patient was given Medrol Juan for 09/2024 however she has been taking only 1 tablet at bedtime which has improved her wrists pain however she continued to have neck pain. 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 Review of Systems: Review of Systems Constitutional: Negative. HENT: Negative. Respiratory: Negative. Musculoskeletal: Positive for neck pain (Mostly in the morning). Negative for arthralgias. Skin: Negative for color change and rash. Psychiatric/Behavioral: Negative for dysphoric mood. Current Outpatient Medications Medication Sig Dispense Refill ibuprofen (MOTRIN) 800 mg tablet Take 1 tablet (800 mg total) by mouth every 6 (six) hours as needed. levothyroxine (SYNTHROID, LEVOTHROID) 25 MCG tablet Take 1 tablet (25 mcg total) by mouth in the morning. methylPREDNISolone (MEDROL, JUAN,) 4 mg tablet follow package directions 21 tablet 0 progesterone (PROMETRIUM) 200 mg capsule Take 1 capsule (200 mg total) by mouth in the morning. spironolactone (ALDACTONE) 100 mg tablet Take 1 tablet (100 mg total) by mouth in the morning. loratadine (CLARITIN) 10 mg tablet Take 1 tablet (10 mg total) by mouth in the morning. (Patient not taking: Reported on 11/21/2024) ondansetron (ZOFRAN) 4 mg tablet Take 1 tablet (4 mg total) by mouth every 8 (eight) hours as needed for nausea. (Patient not taking: Reported on 10/24/2024) tiZANidine (ZANAFLEX) 2 mg tablet One tab at bed time 30 tablet 2 valACYclovir (VALTREX) 1000 mg tablet Take 1 tablet (1,000 mg total) by mouth in the morning and 1 tablet (1,000 mg total) before bedtime. (Patient not taking: Reported on 10/24/2024) No current facility-administered medications for this visit. Physical Exam: Physical Exam Vitals and nursing note reviewed. Constitutional: General: She is not in acute distress. Appearance: She is well-developed. She is not diaphoretic. HENT: Head: Normocephalic and atraumatic. Right Ear: External ear normal. Left Ear: External ear normal. Nose: Nose normal. Eyes: Conjunctiva/sclera: Conjunctivae normal. Pupils: Pupils are equal, round, and reactive to light. Neck: Thyroid: No thyromegaly. Pulmonary: Effort: Pulmonary effort is normal. Musculoskeletal: General: No tenderness or deformity. Normal range of motion. Comments: Hands exams no tenderness or swelling or warmth. Neck tender paraspinal muscles Skin: General: Skin is warm and dry. Findings: No erythema or rash. Neurological: Mental Status: She is alert and oriented to person, place, and time. Cranial Nerves: No cranial nerve deficit. Coordination: Coordination normal. Psychiatric: Behavior: Behavior normal. WILLIS-28 (If Applicable) There is currently no information documented on the homunculus. Go to the Rheumatology activity and complete the homunculus joint exam. WILLIS-28 (CRP): -- WILLIS-28 (ESR): -- Tender (WILLIS-28): -- Swollen (WILLIS-28): -- Resp 18 : reviewed Labs and Imaging: reviewed and discussed with the patient during the visit.I Lab Results Component Value Date CRP 0.7 10/24/2024 C3 128 10/24/2024 C4 35 10/24/2024 GFR >60 07/11/2016 GFR >60 07/11/2016 AST 16 07/11/2016 Imaging: Assessment and Plan: Ally Gonzalez is a 49 y.o. female patient with: 1. HLA B27 positive 2. Neck pain - X-ray spine cervical 4 or 5 views; Future - tiZANidine (ZANAFLEX) 2 mg tablet; One tab at bed time Dispense: 30 tablet; Refill: 2 At this point patient continued to have neck pain, she did well on Medrol and no wrist pain at this time. Patient HLA B27 positive tests done 2014. Immune markers including anti DNA, complements, miguelina panel as well as inflammatory markers came back normal or negative benign patient does have low titer MATTIE however she lacks features of lupus. X-rays cervical spine. Advised patient to take ibuprofen 400 mg 2 tablets at 1 time after food for pain control. Return to clinic in February or a earlier if needed. RTC in February This note was created with the assistance of a speech recognition program. While intending to generate a timely document that accurately reflects the content of the visit, no guarantee can be provided that every grammatical or spelling mistake has been or will be identified or corrected. Thank you for your understanding. [facility] Rheumatology Dr. Hansel Galvan MD [address] [place] [address], [address] [place] [address] Office: [phone] documented in this encounter [facility] 11-04-2024 Miscellaneous Notes Ally called stated she in pain if you can prescribe and nonsteroidal anti-inflammatory drug for her pain??? Please advise. Thanks She can take [id number] ibuprofen or Aleve till I see in the clinic Called spoke with Ally gave message from DR. Galvan. She stated she already taking both ibuprofen and Aleve with no relief, she ask if you can prescribe Celebrex for her. Her chiropractor suggested it. Please advise. Thanks I did send prescription for Medrol ..Called pt n/a. Lm to call back in office. Left detail message Medrol pk sent to pharmacy. documented in this encounter [facility] 11-04-2024 Telephone encounter Note Ally called stated she in pain if you can prescribe and nonsteroidal anti-inflammatory drug for her pain??? Please advise. Thanks [facility] 11-04-2024 Telephone encounter Note She can take [id number] ibuprofen or Aleve till I see in the clinic [facility] 11-04-2024 Telephone encounter Note Called spoke with Ally gave message from DR. Galvan. She stated she already taking both ibuprofen and Aleve with no relief, she ask if you can prescribe Celebrex for her. Her chiropractor suggested it. Please advise. Thanks [facility] 11-04-2024 Telephone encounter Note I did send prescription for Medrol [facility] 11-04-2024 Telephone encounter Note ..Called pt n/a. Lm to call back in office. Left detail message Radha vince sent to pharmacy. [facility] 10-24-2024 History of Presen t illness Narrative Images from the original note were not included. [address] [facility] [address] [facility] [id number] Date of Service: 10/24/2024 Subjective: Ally Gonzalez is a 49 y.o. female who presents today for evaluation positive MATTIE. Patient is seen at the request of Shahida Jo MD. This is the 1st visit for this 49 -year-old female patient who has been referred to us with positive MATTIE Patient's history dates back to 09/26/2024 when she developed right wrist swelling with warmth and redness, she was put on 1 week steroid with good improvement , however pain came back and was given another course of steroid, last dose was 2 weeks ago, now has minimal pain but she has been having neck pain that started around June 2024, neck pain more in the morning and increase on movement for which she has been taking ibuprofen also. Denied history of bowel symptoms or urinary tract infection. Autoimmune /Systemic screening negative Raynaud's, negative for oral/ ocular sicca, recurrent oral ulcers, no alopecia, no photosensitivity, no skin lesions, no butterfly rash Was put on Prednisone 20 mg 1 month ago with good improvement No history of cytopenia, or pericarditis, pleuritis or DVT/PE Systemic involvement such as anorexia, wt loss, focal swelling, recurrent unexplained fever. Lab results done on 10/03/2024 ,MATTIE 1:80 , CBC, CMP normal, rheumatoid factor negative Current medications including thyroxine Past medical past hypothyroidism Past surgical lumbar spine surgery Smoking history negative Family history negative The following portions of the patient's history were reviewed and updated as appropriate: allergies, current medications, past family history, past medical history, past social history, past surgical history and problem list. Review of Systems: Review of Systems Constitutional: Negative. HENT: Negative. Eyes: Negative. Respiratory: Negative. Cardiovascular: Negative. Gastrointestinal: Negative. Genitourinary: Negative. Musculoskeletal: Positive for arthralgias and neck pain. Skin: Negative for color change and rash. Allergic/Immunologic: Penicillin Neurological: Negative for seizures, syncope, weakness and headaches. Hematological: Does not bruise/bleed easily. Psychiatric/Behavioral: Negative. Negative for dysphoric mood. Current Outpatient Medications Medication Sig Dispense Refill ibuprofen (MOTRIN) 800 mg tablet Take 1 tablet (800 mg total) by mouth every 6 (six) hours as needed. levothyroxine (SYNTHROID, LEVOTHROID) 25 MCG tablet Take 1 tablet (25 mcg total) by mouth in the morning. predniSONE (DELTASONE) 20 mg tablet Take 1 tablet (20 mg total) by mouth in the morning and 1 tablet (20 mg total) before bedtime. progesterone (PROMETRIUM) 200 mg capsule Take 1 capsule (200 mg total) by mouth in the morning. spironolactone (ALDACTONE) 100 mg tablet Take 1 tablet (100 mg total) by mouth in the morning. loratadine (CLARITIN) 10 mg tablet Take 1 tablet (10 mg total) by mouth in the morning. (Patient not taking: Reported on 10/24/2024) ondansetron (ZOFRAN) 4 mg tablet Take 1 tablet (4 mg total) by mouth every 8 (eight) hours as needed for nausea. (Patient not taking: Reported on 10/24/2024) valACYclovir (VALTREX) 1000 mg tablet Take 1 tablet (1,000 mg total) by mouth in the morning and 1 tablet (1,000 mg total) before bedtime. (Patient not taking: Reported on 10/24/2024) No current facility-administered medications for this visit. Physical Exam: Physical Exam Vitals and nursing note reviewed. Constitutional: General: She is not in acute distress. Appearance: She is well-developed. She is not diaphoretic. HENT: Head: Normocephalic and atraumatic. Right Ear: External ear normal. Left Ear: External ear normal. Nose: Nose normal. Eyes: Conjunctiva/sclera: Conjunctivae normal. Pupils: Pupils are equal, round, and reactive to light. Neck: Thyroid: No thyromegaly. Cardiovascular: Rate and Rhythm: Normal rate and regular rhythm. Heart sounds: Normal heart sounds. No murmur heard. No friction rub. Pulmonary: Effort: Pulmonary effort is normal. No respiratory distress. Breath sounds: No stridor. No wheezing or rales. Abdominal: General: There is no distension. Palpations: Abdomen is soft. There is no mass. Tenderness: There is no guarding. Musculoskeletal: General: No tenderness or deformity. Normal range of motion. Cervical back: Normal range of motion and neck supple. Comments: Hands exams no tenderness or swelling or warmth. Neck tender paraspinal muscles Skin: General: Skin is warm and dry. Findings: No erythema or rash. Neurological: Mental Status: She is alert and oriented to person, place, and time. Cranial Nerves: No cranial nerve deficit. Coordination: Coordination normal. Psychiatric: Behavior: Behavior normal. WILLIS-28 (If Applicable) There is currently no information documented on the homunculus. Go to the Rheumatology activity and complete the homunculus joint exam. WILLIS-28 (CRP): -- WILLIS-28 (ESR): -- Tender (WILLIS-28): -- Swollen (WILLIS-28): -- BP 112/64 Resp 18 : reviewed Labs and Imaging: reviewed and discussed with the patient during the visit.I Lab Results Component Value Date GFR >60 07/11/2016 GFR >60 07/11/2016 AST 16 07/11/2016 Imaging: Assessment and Plan: Ally Gonzalez is a 49 y.o. female patient with: 1. MATTIE positive - Unlisted Lab Test; Future - MIGUELINA Panel; Future - C3 complement; Future - C4 complement; Future - Erythrocyte Sedimentation Rate (ESR); Future - C-reactive protein; Future 2. Arthritis of right wrist At this point I am seeing this patient with history of arthritis right wrist responded to steroid 2 courses with no other joints pain and no other systemic symptoms. She does have neck pain probably muscular. She was found to have low titer MATTIE. CBC chemistries were normal and rheumatoid factor was negative. Today will put orders for more immune markers and based on the results further plan will be made RTC 1 month Total [id number] time was 45 minutes with more than 50% of the visit spent counseling and discussing diagnostic or treatment recommendations, prognosis, risks and benefits of management options, instructions, compliance or risk-factor reduction. This note was created with the assistance of a speech recognition program. While intending to generate a timely document that accurately reflects the content of the visit, no guarantee can be provided that every grammatical or spelling mistake has been or will be identified or corrected. Thank you for your understanding. [facility] Rheumatology Dr. Hansel Galvan MD [address] [facility] [address] [place] [address] Office: [phone] documented in this encounter [facility] 10-03-2024 History of Presen t illness Narrative Images from the original note were not included. Ally Gonzalez is a 49 y.o. female presents with chief complaint of Wrist Pain HPI: HPI History of Present Illness The patient presents for evaluation of wrist pain. She reports an initial episode of severe wrist pain that occurred during her work shift last Monday, escalating to a 10 on the pain scale by the time she returned home at 3 AM. This necessitated an emergency room visit where radiographic imaging revealed no abnormalities. Blood tests were conducted to rule out gout, which returned negative results but indicated the presence of inflammation. She was prescribed a one-week course of prednisone 20 mg and Percocet, of which she only consumed two doses due to personal aversion. The wrist pain recurred this morning after discontinuing prednisone yesterday. She also notes swelling in the affected wrist compared to the other. She took a dose of prednisone 2 hours prior to this consultation. She has been taking 1 prednisone instead of 2 as she was not able to sleep more than 4 hours when she was taking 2. She requests a refill of prednisone as she needs to take care of her who is getting surgery on his hand on Monday. MEDICATIONS Current: Prednisone. Discontinued: Percocet. SUBJECTIVE: MEDICATIONS: Current Outpatient Medications Medication Instructions Azelex 20 % cream APPLY TO THE AFFECTED AREA(S) EVERY NIGHT AT BEDTIME cholecalciferol (Vitamin D-3) 75 MCG (3000 UT) tablet Take by mouth. ibuprofen 800 mg, Oral, 3 times daily levothyroxine (SYNTHROID) 25 mcg, Oral, Daily before breakfast loratadine (Claritin) 10 MG tablet Every 24 hours predniSONE (DELTASONE) 20 mg, 2 times daily progesterone 200 mg, Daily spironolactone (Aldactone) 100 MG tablet testosterone implant as directed Implant Tirzepatide-Weight Management (ZEPBOUND SC) Inject under the skin I have reviewed and reconciled the history and medication list with the patient today. REVIEW OF SYMPTOMS: Review of Systems Constitutional: Negative. HENT: Negative. Respiratory: Negative for cough, shortness of breath and wheezing. Cardiovascular: Negative for chest pain. Gastrointestinal: Negative for abdominal pain. Genitourinary: Negative. Musculoskeletal: Positive for arthralgias and joint swelling. Skin: Negative. Neurological: Negative. OBJECTIVE: Visit Vitals BP 134/84 Pulse 91 Ht 5' 10 Wt 142 lb 12.8 oz SpO2 98% BMI 20.49 kg/m Smoking Status Never BSA 1.79 m Physical Exam Vitals and nursing note reviewed. Constitutional: Appearance: Normal appearance. HENT: Head: Normocephalic and atraumatic. Right Ear: Tympanic membrane normal. Left Ear: Tympanic membrane normal. Nose: Nose normal. Eyes: Extraocular Movements: Extraocular movements intact. Conjunctiva/sclera: Conjunctivae normal. Pupils: Pupils are equal, round, and reactive to light. Cardiovascular: Rate and Rhythm: Normal rate and regular rhythm. Pulmonary: Effort: Pulmonary effort is normal. Breath sounds: Normal breath sounds. Musculoskeletal: Cervical back: Normal range of motion and neck supple. Comments: Pain with pronation and supination, point tenderness over ulnar styloid process, normal range of motion Neurological: Mental Status: She is alert. ASSESSMENT AND PLAN: Assessment/Plan Diagnoses and all orders for this visit: Polyarthralgia - MATTIE; Future - Sedimentation rate, automated; Future - CBC and differential; Future - Comprehensive metabolic panel; Future - Rheumatoid factor; Future Right wrist pain Assessment & Plan 1. Wrist pain. The patient's symptoms do not align with a typical orthopedic issue such as an injury, sprain, strain, tear, or fracture. Given the elevated CRP levels, a rheumatology consultation is deemed appropriate to investigate potential systemic causes, including autoimmune conditions or arthritis. Additional blood work will be ordered to gather more comprehensive information. A prescription for steroids will be sent to [facility]. She will be provided with a cock-up wrist splint for support. documented in this encounter [facility] 09-26-2024 History of Presen t illness Narrative Images from the original note were not included. Ally Gonzalez is a 49 y.o. female presents with chief complaint of Foot Pain HPI: HPI History of Present Illness The patient presents for evaluation of foot pain. She has self-diagnosed herself with Hathaway's neuroma, reporting a burning sensation localized to the ball of her foot and extending to the third and fourth toes. The onset of these symptoms was in 04/2024. She reports no history of falls. She also mentions the presence of spinal hardware, including rods, in her lower back but reports no associated pain. She speculates that her foot pain could be related to her back condition, although she does not experience any back pain. She notes that the burning sensation is not constant and is currently absent. 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 The burning sensation is exacerbated when she wears her work shoes and during driving, particularly on her commute to work. She alleviates the burning sensation by removing her shoe until the discomfort subsides. The burning sensation also occurs during treadmill use. Despite attempts at conservative management with shoe inserts and Lassiter running shoes, there has been no significant improvement. She is currently on a course of prednisone, which has not alleviated the burning sensation. 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 She was in the ER on Monday morning for her wrist and is currently on steroids. The pain in her wrist has resolved. She had a mammogram done on 09/06/2024 at [facility] in [place], which was normal. She also had a colonoscopy in 04/2024. Supplemental Information She was on [place] Thyroid and then [facility]. 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 MEDICATIONS Current: Prednisone, levothyroxine. SUBJECTIVE: MEDICATIONS: Current Outpatient Medications Medication Instructions Azelex 20 % cream APPLY TO THE AFFECTED AREA(S) EVERY NIGHT AT BEDTIME cholecalciferol (Vitamin D-3) 75 MCG (3000 UT) tablet Take by mouth. ibuprofen 800 mg, Oral, 3 times daily levothyroxine (SYNTHROID) 25 mcg, Oral, Daily before breakfast loratadine (Claritin) 10 MG tablet Every 24 hours predniSONE (DELTASONE) 20 mg, 2 times daily progesterone 200 mg, Daily spironolactone (Aldactone) 100 MG tablet testosterone implant as directed Implant Tirzepatide-Weight Management (ZEPBOUND SC) Inject under the skin I have reviewed and reconciled the history and medication list with the patient today. REVIEW OF SYMPTOMS: Review of Systems Constitutional: Negative. HENT: Negative. Respiratory: Negative for cough, shortness of breath and wheezing. Cardiovascular: Negative for chest pain. Gastrointestinal: Negative for abdominal pain. Genitourinary: Negative. Musculoskeletal: Positive for myalgias. Skin: Negative. Neurological: Negative. OBJECTIVE: Visit Vitals BP 116/76 Pulse 78 Ht 5' 10 Wt 145 lb SpO2 97% BMI 20.81 kg/m Smoking Status Never BSA 1.8 m Physical Exam Vitals and nursing note reviewed. [...] sounds: Normal breath sounds. Musculoskeletal: Cervical back: Normal range of motion and neck supple. Feet: Feet: Comments: Tenderness to plantar surface of right foot as noted above Skin: General: Skin is warm and dry. Capillary Refill: Capillary refill takes less than 2 seconds. Neurological: Mental Status: She is alert. ASSESSMENT AND PLAN: Assessment/Plan Diagnoses and all orders for this visit: Burning sensation of foot - Ambulatory referral to Podiatry; Future Chronic bilateral low back pain without sciatica Hypothyroidism, unspecified type (CMS/HCC) Right wrist pain Assessment & Plan 1. Foot pain. The symptoms suggest a possible diagnosis of Hathaway's neuroma. The patient reports burning pain on the balls of her feet and between the third and fourth toes, which started around April. She has tried inserts and good walking shoes without relief. She is currently on prednisone but still experiences burning. An ultrasound of the foot will be ordered to confirm the diagnosis. A referral to podiatry will be made for further evaluation. 2. Wrist pain. The patient was in the ER on Monday morning for wrist pain and is currently on steroids. She reports that the pain is now better. 3. Health maintenance. A thyroid panel will be ordered to monitor her thyroid function, as she was previously on [place] and has been switched to levothyroxine. She had a mammogram done on September 06 at [facility] in [place], which was normal. She also had a colonoscopy in April and is scheduled for her next colonoscopy in 10 years. PROCEDURE Colonoscopy was performed in 04/2024. documented in this encounter [facility] 09-02-2024 Note Patient Education Ma terials Name: Ally Gonzalez Current Date: 09/02/2024 13:39:15 [facility] : 1975 The following sheet(s) are the Patient Education Leaflets for Ally Gonzalez Radiology Colposcopy Colposcopy is a procedure that gives your healthcare provider a magnified view of your cervix. It's done using a lighted microscope called a colposcope. In most cases, a sample of cervical cells is taken during a biopsy. The sample can then be studied in a lab. If any problems are found, you and your healthcare provider will discuss treatment choices. It usually takes less than?30 minutes, and you can often go back to your normal routine right away. Reasons for the procedure Colposcopy is usually done as a follow-up exam to help find the cause of an abnormal Pap test. Results of an abnormal Pap test can mean that?the cells don?t appear normal or that?there are cancer cells. Abnormal cells can also be caused by infections.?HPV?(human papillomavirus)?is a large family of viruses?that?can be passed from person to person through sex. HPV?can cause genital warts. It can also cause changes in cervical cells.?If an HPV test is positive and the Pap test is abnormal, a colposcopy may be recommended.?Colposcopy is also used to?evaluate?other problems.?These include pain or bleeding during sex, or a sore (lesion) on the vulva or vagina. What are the risks? Problems after colposcopy are very rare, but can include: ?Bleeding (if a biopsy is done) ?Infection Getting ready for the procedure Colposcopy is normally done in your healthcare provider?s office. It will be scheduled for a time when you?re not having your menstrual period. You may be asked to sign a form giving your consent to have the procedure. A day or 2 before the procedure, your healthcare provider may also ask you to: ?Not have sex ?Stop using tampons ?Not use creams or other vaginal medicines ?Not clean out the vagina with water or other fluids (douche) ?Take ziyf-cim-cnfyouh pain medicines an hour or 2 before the procedure During colposcopy ?You will be asked to lie on an exam table with your knees bent, just as you do for a Pap test. ?A tool called a speculum is inserted into the vagina to hold it open. ?A vinegar solution is applied to the cervix to make the abnormal cells easier to see. You may feel pressure or a slight burning for a few moments. In some cases, the cervix may be numbed first with an anesthetic. ?The cervix is looked at through the colposcope. This is placed outside the vagina. ?If your healthcare provider sees abnormal areas on your cervix, a biopsy will be done. The tissue sample is sent to a lab for study. ?An endocervical curettage may also be done at the time of colposcopy. In this procedure, a tool is put into the endocervical canal to get a sample of cells from the endocervix. This area can't be seen with a colposcope.? ?You may feel slight pinching or cramping during the biopsy. Medicine may be applied to the biopsy site to stop bleeding. After the procedure ?If you feel lightheaded or dizzy, you can rest on the table until you?re ready to sit up. ?If a biopsy was done, you may have mild cramping or light bleeding for a few days. You may also have discharge from the medicine used to stop bleeding at the biopsy site. ?Use pads, not tampons, for at least the first 24 hours. ?If you have any discomfort, [id number] pain medicine can provide relief. ?Ask your healthcare provider when you can have sex again. Follow-up If a biopsy was done, your healthcare provider will get the lab report in a week or 2. You and your healthcare provider can then discuss the results. In some cases, you may be scheduled for more tests or treatment. Be sure to keep follow-up appointments with your healthcare provider. When to call your healthcare provider Call your healthcare provider if any of the following occur: ?Heavy vaginal bleeding (more than a pad an hour for 2 hours) ?Severe or increasing pelvic pain ?A fever over?100.4?F?(38?C), or higher, or as directed by your healthcare provider ?Bad-smelling or unusual vaginal discharge ? [id number] [employer]. All rights reserved. This information is not intended as a substitute for professional medical care. Always follow your healthcare professional's instructions. Urology Pelvic Floor Muscle Exercises Pelvic floor muscle exercises are done to help strengthen the muscles in your pelvic floor. They are easy to learn and simple to do. And if you do them right, no one can tell you?re doing them. You can do them almost anywhere. Your healthcare provider, nurse, or physical therapist can answer any questions you have and help you get started. These are also called Kegel exercises. A weak pelvic floor The pelvic floor muscles may weaken. This can happen because of any of these: ?Aging ? ?Vaginal childbirth ?I (more content not included)... [facility] 04-05-2024 History of Presen t illness Narrative Images from the original note were not included. Ally Gonzalez 1975 Ally Gonzalez is a 48 y.o. female presents with chief complaint of Consult (Colonoscopy) HPI: Patient is a 48-year-old female who is here to discuss colonoscopy. She has never had a colonoscopy. She denies abdominal pain, change in bowel habits, blood in the stool. She denies family history for colon cancer. SUBJECTIVE: MEDICATIONS: ALLERGIES Current Outpatient Medications Medication Instructions Azelex 20 % cream APPLY TO THE AFFECTED AREA(S) EVERY NIGHT AT BEDTIME cholecalciferol (Vitamin D-3) 75 MCG (3000 UT) tablet Oral ibuprofen 800 mg, Oral, 3 times daily levothyroxine (SYNTHROID) 25 mcg, Oral, Daily before breakfast loratadine (Claritin) 10 MG tablet Every 24 hours semaglutide (Ozempic) 2 MG/1.5ML solution pen-injector Subcutaneous, 0.4mL once weekly spironolactone (Aldactone) 100 MG tablet testosterone implant as directed Implant Allergies Allergen Reactions Naproxen GI intolerance Penicillins Other Reaction(s): Unknown 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 Thyroid PAST MEDICAL HISTORY: SOCIAL HISTORY SURGICAL HISTORY: Past Medical History: Diagnosis Date Allergic Dermal nevus 2012 Eczema GERD (gastroesophageal reflux disease) Urinary tract infection Varicella Social History Tobacco Use Smoking status: Never Smokeless tobacco: Never Substance Use Topics Alcohol use: Yes Alcohol/week: 3.0 standard drinks of alcohol Types: 3 Glasses of wine per week Drug use: Never Past Surgical History: Procedure Laterality Date ADENOIDECTOMY 1978 BACK SURGERY 2015 COSMETIC SURGERY 2019 EXCISION 2013 skin lesion right upper chest; dermal nevus FOOT SURGERY Right 2013 excision lesion NASAL SEPTUM SURGERY 2010 deviated septum NASAL SINUS SURGERY 07/2018 SPINE SURGERY TONSILECTOMY, ADENOIDECTOMY, BILATERAL MYRINGOTOMY AND TUBES TONSILLECTOMY 1977 REVIEW OF SYMPTOMS: Review of Systems Constitutional: Negative for fever. Respiratory: Negative for shortness of breath. Cardiovascular: Negative for chest pain. Gastrointestinal: Negative for abdominal pain and blood in stool. Genitourinary: Negative for difficulty urinating. Musculoskeletal: Negative for back pain. Neurological: Negative for syncope. OBJECTIVE: Visit Vitals BP 110/70 Ht 5' 10 Wt 149 lb BMI 21.38 kg/m Smoking Status Never BSA 1.83 m Physical Exam Constitutional: General: She is not in acute distress. HENT: Head: Atraumatic. Eyes: General: No scleral icterus. Cardiovascular: Rate and Rhythm: Normal rate and regular rhythm. Pulmonary: Breath sounds: Normal breath sounds. Abdominal: General: There is no distension. Palpations: Abdomen is soft. Tenderness: There is no abdominal tenderness. Musculoskeletal: Cervical back: Neck supple. Skin: General: Skin is warm and dry. Neurological: Mental Status: She is alert. ASSESSMENT AND PLAN: Assessment/Plan Diagnoses and all orders for this visit: Encounter for screening for malignant neoplasm of colon - Ambulatory referral to General Surgery Plan will be to perform a colonoscopy. The procedure, benefits, risks including risks of bleeding, perforation, incomplete colonoscopy were discussed. If the colonoscopy is normal, next colonoscopy in 10 years. documented in this encounter [facility] 03-19-2024 Telephone encounter Note Asking for a referral to [facility] office for Colonoscopy please . [facility] 03-19-2024 Miscellaneous Notes Asking for a referral to [facility] office for Colonoscopy please . documented in this encounter [facility] 03-15-2024 Telephone encounter Note Pt requesting a referral for Colonscopy [phone] [facility] 03-15-2024 Miscellaneous Notes Pt requesting a referral for Colonscopy [phone] documented in this encounter [facility] 08-18-2023 Evaluation note Encounter Date Diagnosis Assessment Notes Jul, Thrush (ICD-10 - B37.0) Pt advised to use mouthwash. Pt to start fluconazole (fred infection- oral thrush - treating with fluconazole) Pt to call in a month [employer] Other 08-21-2023 Evaluation note* Encounter Date Diagnosis Assessment Notes Treatment Notes Treatment Clinical Notes Feb, GERD (gastroesophageal reflux disease) (ICD-10 - K21.9) Pt states this has been going on for about three months. Pt states she has taken nexium, tums and hydrochloric acid tablets and this did not help. Pt advised to start Omeprazole 40mg BID Pt RTO in 3 months Feb, Dysphagia (ICD-10 - R13.10) Pt states this has been going on for about three months. [employer] Other 09-30-2021 Evaluation note* Encounter Date Diagnosis Assessment Notes Treatment Notes Treatment Clinical Notes Mar, Encounter for screening for other viral diseases (ICD-10 - Z11.59) Mar, Other Additional time spent conducting pre-visit phone call, screening for symptoms, instructions on social distancing, application and removal of PPE, and cleaning of examination room, equipment and supplies was preformed. Patient education given for testing methodology and results. Patient care instructions given in writting by [facility] At Home document. [employer] Other Evaluation noteNo InformationNort [employer] Other Evaluation note* Diagnosis Encounter for screening for malignant neoplasm of colon documented in this encounter [facility] HealthcareEvaluation note* Diagnosis Weight gain- Primary Other symptoms concerning nutrition, metabolism, and development Acquired hypothyroidism (CMS/HCC) Unspecified hypothyroidism Burning sensation of foot- Primary Chronic bilateral low back pain without sciatica Hypothyroidism, unspecified type (CMS/HCC) Right wrist pain Pain in joint, forearm documented in this encounter [facility] HealthcareEvaluation note* Diagnosis Weight gain- Primary Other symptoms concerning nutrition, metabolism, and development Acquired hypothyroidism (CMS/HCC) Unspecified hypothyroidism Polyarthralgia- Primary Pain in joint, multiple sites Right wrist pain Pain in joint, forearm documented in this encounter [facility] HealthcareEvaluation note* Diagnosis 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 Neck pain Cervicalgia documented in this encounter [facility] SystemEvaluation note* Diagnosis Weight gain- Primary Other symptoms concerning nutrition, metabolism, and development Acquired hypothyroidism (CMS/HCC) Unspecified hypothyroidism Neck pain- Primary Cervicalgia Cervical arthritis Cervical spondylosis without myelopathy Radiculopathy affecting upper extremity Facet arthritis of cervical region documented in this encounter [facility] HealthcareHistory general Narrative - Reported* Type Description Date Surgical History back surgery Surgical History deviated septum repair Surgical History tonsillectomy and adenoidectomy Hospitalization History See Above [employer] Other InstructionsNot on filedocumented in this encounter [facility] SystemInstructionsNot on filedocumented in this encounter [facility] SystemReason for visit Narrative* Consultation (Routine) - Pending Review Specialty Diagnoses / Procedures Referred By Contemma t Referred To Contact Rheumatology Diagnoses Positive MATTIE (antinuclear antibody) Procedures MS OFFICE OUTPATIENT VISIT 60-74 MINS HIGH MDM [id number] (SNOMED CT) - AMB REFERRAL TO RHEUMATOLOGY Shahida Jo MD [address] [place] [address] Phone: tel: fax: Hansel Galvan MD [address] [address] Phone: tel: fax: Referral ID Status Reason Start Date Expiration Date V isits Requested Visits Authorized [id number] Pending Review 10/17/2024 04/15/2025 1 1 [facility] System Summary Purpose Family History No Family History Records FoundNo Family History Records FoundNo Family History Records FoundNo Family History Records FoundNo Family History Records FoundNo Family History Records FoundNo Family History Records FoundNo Family History Records FoundNo Family History Records Found Advance Directives No Advanced Directives Records FoundDocuments on File Type Date Recorded Patient Back Pad Inspector Expl anation Advance Directives and Living Will Power of Bottom Saw Operator Documents on File Type Date Recorded Patient Back Pad Inspector Expl anation ACP-Advance Directive ACP-Power of Bottom Saw Operator Documents on File Type Date Recorded Patient Back Pad Inspector Expl anation Advance Directives and Living Will Power of Bottom Saw Operator Procedure Findings Note Post Operative Note: Post-Pr ocedure Diagnosis: External and internal nasal deformity Procedure: Rhinoplasty Septoplasty Inferior turbinate reduction Surgeon: Mateo Cee MD, FACS Resident/Fellow/Other Draw Bench Operator Helper: Nilam Pcaheco Estimated Blood Loss (mL): Less than 50 mL Specimen: no Findings: see op note Signature/Cosignature/Attestation: Attending AttestationI performed the procedure without a resident Electronic Signatures: Mateo Cee) (Signed 02-Aug-2018 11:54) Authored: Post Operative Note, Signature/Cosignature/Attestation Last Updated: 02-Aug-2018 11:54 by Mateo Cee) Assessments Diagnosis Candidal vulvitis Candidiasis of vulva and vagina Well woman exam with routine gynecological exam Routine gynecological examination Diagnosis Encounter for screening mammogram for breast cancer Diagnosis Breast cancer screening Breast screening, unspecified Reason for Referral Status Reason Specialty Diagnoses / Procedures Referre d By Contact Referred To Contact Closed Radiology Diagnoses Breast cancer screening Procedures SUDHIR DIGITAL SCREEN SELF REFERRAL W OR WO CAD BILATERAL Thor Hernandez MD [address] [place] [address] Additional Source Comments INFORMATION SOURCE (unrecogn ized section and content) DATE CREATED AUTHOR 02/13/2018 [facility] DATE CREATED AUTHOR AUTHOR'S ORGANIZ ATION 09/04/2018 [facility] DATE CREATED AUTHOR AUTHOR'S ORGANIZ ATION 03/26/2020 [facility] DATE CREATED AUTHOR AUTHOR'S ORGANIZ ATION 05/17/2021 [facility] DATE CREATED AUTHOR AUTHOR'S ORGANIZ ATION 02/22/2022 [facility] DATE CREATED AUTHOR AUTHOR'S ORGANIZ ATION 06/04/2023 [facility] DATE CREATED AUTHOR AUTHOR'S ORGANIZ ATION 09/10/2024 [facility] DATE CREATED AUTHOR AUTHOR'S ORGANIZ ATION 11/26/2024 [facility] DATE CREATED AUTHOR AUTHOR'S ORGANIZ ATION 12/11/2024 [facility] EPIC Reason for Visit (unrecogniz ed section and content) Status Reason Specialty Diagnoses / Procedures Referre d By Contact Referred To Contact Closed Diagnoses Encounter for screening mammogram for breast cancer Procedures SUDHIR BONI DIGITAL SCREEN BILATERAL SUDHIR DIGITAL SCREEN W CAD BILATERAL Thor Hernandez MD [address] [place] [address] [address] Status Reason Specialty Diagnoses / Procedures Referre d By Contact Referred To Contact Closed Radiology Diagnoses Breast cancer screening Procedures SUDHIR DIGITAL SCREEN SELF REFERRAL W OR WO CAD BILATERAL Thor Hernandez MD [address] [place] [address] Reason Comments Consult Colonoscopy Specialty Diagnoses / Procedures Referred By Brannon t Referred To Contact General Surgery Diagnoses Encounter for screening for malignant neoplasm of colon Procedures MS OFFICE/OUTPATIENT NEW HIGH MDM 60 MINUTES Yanira Gutierrez, DENNIS [address] [place] [address] Ramana Conner, DO [address] [address] Referral ID Status Reason Start Date Expiration Date V isits Requested Visits Authorized [id number] Closed Specialty Services Required 03/15/2024 09/11/2024 1 1 Reason Comments Foot Pain Reason Comments Wrist Pain Reason Comments Neck Pain Care Teams (unrecognized sec tion and content) Site Monitor Relationship Specialty Start Date End Date Shahida Jo MD [address] [place] [address] PCP - General Family Medicine 01/04/23 Shahida Jo MD [address] [place] [address] PCP - Medical [employer] 01/21/19 07/23/99 Site Monitor Relationship Specialty Start Date End Date Shahida Jo MD [address] [place] [address] PCP - General Family Medicine 01/04/23 Shahida Jo MD [address] [place] [address] PCP - Medical [employer] 01/21/19 07/23/99 Site Monitor Relationship Specialty Start Date End Date Shahida Jo MD [address] [place] [address] PCP - General Family Medicine 01/04/23 Shahida Jo MD [address] [place] [address] PCP - Medical [employer] 7/1/19 12/31/99 Site Monitor Relationship Specialty Start Date End Date Shahida Jo MD [address] [place] [address] PCP - General Family Medicine 01/04/23 Shahida Jo MD [address] [place] [address] PCP - Medical [employer] 01/21/19 07/23/99 Site Monitor Relationship Specialty Start Date End Date Shahida Jo MD [address] [place] [address] PCP - General Family Medicine 01/04/23 Shahida Jo MD [address] [place] [address] PCP - Medical for; to (do) Centers 01/21/19 07/23/99 Site Monitor Relationship Specialty Start Date End Date Shahida Jo MD [address] [place] [address] PCP - General Family Medicine 01/04/23 Shahida Jo MD [address] [place] [address] PCP - Medical for; to (do) Centers 01/21/19 07/23/99 Site Monitor Relationship Specialty Start Date End Date Shahida Jo MD [address] [place] [address] PCP - General Family Medicine 01/04/23 Shahida Jo MD [address] [place] [address] PCP - Medical [employer] 01/21/19 07/23/99 Site Monitor Relationship Specialty Start Date End Date Shahida Jo MD [address] [facility] [place] [address] PCP - General 10/23/24 Site Monitor Relationship Specialty Start Date End Date Shahida Jo MD [address] [facility] [place] [address] PCP - General 10/23/24 Site Monitor Relationship Specialty Start Date End Date Shahida Jo MD [address] [facility] [place] [address] PCP - General 10/23/24 Site Monitor Relationship Specialty Start Date End Date Shahida Jo MD [address] [facility] [place] [address] PCP - General Family Medicine 01/04/23 Shahida Jo MD [address] [facility] [place] [address] PCP - [facility] 01/21/19 07/23/99 FOR RECORDS PERTAINING TO PATIENTS WHO ARE OR HAVE BEEN ENROLLED IN A CHEMICAL DEPENDENCY/SUBSTANCEABUSE PROGRAM, SOME INFORMATION MAY BE OMITTED. This clinical summary was aggregated from multiple sources. Caution should be exercised in using it in the provision of clinical care. This summary normalizes information from multiple sources, and as a consequence, information in this document may materially change the coding, format and clinical context of patient data. In addition, data may be omitted in some cases. CLINICAL DECISIONS SHOULD BE BASED ON THE PRIMARY CLINICAL RECORDS. [employer]. provides no warranty or guarantee of the accuracy or completeness of information in this document.
--- OUTSIDE RECORDS SUMMARY | 2024-12-11 23:13 | XMS_ITS | Encounter Summary ---
Author Organization [facility] Address [address] [place] [address] Care Team Providers Care Competitive Shopper Name Role Phone Shahida Whittington MD Primary Care Provider [phone] Shahida Whittington MD Unavailable [phone] Encounter Details Date Type Department Care Team (Latest Contact Info) Description 12/10/2024 Travel Social History Tobacco Use Types Packs/Day [...] 09/23/2024 How often do you attend chur ch or buddhist services? Patient declined 09/23/2024 Do you belong to any clubs o r organizations such as jehovah's witness groups, unions, fraternal or athletic groups, or [...] care, and heating? Not very hard 09/23/2024 [facility] [place] of Occupat ional Health - Occupational Stress [...] place to sleep or slept in a half-way (including now)? No 01/05/2023 Housing Stability Vital Sign Answer Austyn e Recorded In the last 12 months, was t here a time when you were not able to pay the mortgage or rent on time? No 09/23/2024 In the past 12 months, how m any times have you moved where you were living? 0 09/23/2024 At any time in the past 12 m [facility], were you homeless or living in a half-way (including now)? No 09/23/2024 Comments Unknown Sex and Gender Information Value Date Recorded Sex Assigned at Not on file Legal Sex Female 6:53 PM EDT Gender Identity Not on file Sexual Orientation Not on file documented as of this encounter Plan of Treatment Not on file documented as of this encounter Visit Diagnoses Not on filedocumented in this encounter Care Teams Competitive Shopper Relationship Specialty Start Date End Date Shahida Whittington MD [address] [place] [address] PCP - General Family Medicine 01/04/23 Shahida Whittington MD [address] [place] [address] PCP - Medical [employer] 01/21/19 07/23/99 documented as of this encounter
--- OUTSIDE RECORDS SUMMARY | 2024-12-11 23:13 | XMS_ITS | Encounter Summary ---
Author Organization [facility] Address [address] [place] [address] Care Team Providers Care Polyethylene Bag Machine Operator Name Role Phone Castillo Whittington MD Primary Care Provider [phone] Castillo Whittington MD Unavailable [phone] Reason for Referral * Consultation (Routine) - Authorized Specialty Diagnoses / Procedures Referred By Brannon velazquez Referred To Contact Orthopaedic Surgery Diagnoses Degenerative disc disease, cervical Yanira Gutierrez NP [address] [place] [address] Phone: tel: fax: Ben Mcclure MD [address] [place] [address] Phone: tel: fax: Referral ID Status Reason Start Date Expiration Date Visits Requested Visits Authorized [id number] Authorized Specialty Services Required 11/27/2024 05/26/2025 1 1 Encounter Details Date Type Department Care Team (Late st Contact Info) Description 11/27/2024 Telephone [facility] [address] [place] [id number] Catrachita Rainey MA Social History Tobacco Use Types Packs/Day Years [...] How often do you attend chur or anabaptism services? Patient declined 09/23/2024 Do you belong to any clubs o r organizations such as scientology groups, unions, fraternal or athletic groups, or [...] care, and heating? Not very hard 09/23/2024 [place] of Occupat ional Health - Occupational Stress [...] place to sleep or slept in a mcfp (including now)? No 01/05/2023 Housing Stability Vital Sign Answer Austyn e Recorded In the last 12 months, was t here a time when you were not able to pay the mortgage or rent on time? No 09/23/2024 In the past 12 months, how m any times have you moved where you were living? 0 09/23/2024 At any time in the past 12 m [facility], were you homeless or living in a mcfp (including now)? No 09/23/2024 Comments Unknown Sex and Gender Information Value Date Recorded Sex Assigned at Not on file Legal Sex Female 6:53 PM EDT Gender Identity Not on file Sexual Orientation Not on file documented as of this encounter Miscellaneous Notes * Addendum Note - Castillo Anderson MA - 11/27/2024 2:46 PM EDTAddended by: CASTILLO ANDERSON on: 11/27/2024 02:46 PM Modules accepted: Orders * Telephone Encounter - Castillo Anderson MA - 11/27/2024 2:07 PM EDT Spoke with pt and she states rheumatology did an xray ( in imaging the results) she wondered why they didn't do the referral themselves, she was told by rheum that it has to be made by her pcp. But she has degenerative disc diease and arthritis in her neck * Telephone Encounter - Catrachita Rainey MA - 11/27/2024 10:47 AM EDT Pt states that she went to rheumatology and that all of the tests are negative. Pt said that they suggested going to orthopedic. Pt wants a referral to a orthopedic office, pt would like to see Dr. Mcclure in [place]. documented in this encounter Plan of Treatment Scheduled Referrals Name Type Priority Associated Diagnoses Order Schedule Ambulatory referral to Orthopaedic Surgery Outpatient Referral Routine Degenerative disc disease, cervical Expected: 11/27/2024 (Approximate), Expires: 05/30/2025 documented as of this encounter Visit Diagnoses Diagnosis Degenerative disc disease, cervical- Primary documented in this encounter Care Teams Polyethylene Bag Machine Operator Relationship Specialty Start Date End Date Castillo Whittington MD [address] [place] [address] PCP - General Family Medicine 01/04/23 Castillo Whittington MD [address] [place] [address] PCP - Medical [place] [employer] 01/21/19 07/23/99 documented as of this encounter
--- OUTSIDE RECORDS SUMMARY | 2024-12-11 23:13 | XMS_ITS | Clinical Summary ---
Author Organization [facility] Address [address] [place] [address] Care Team Providers Care Log Data Technician Name Role Phone Shahida Whittington MD Primary Care Provider [phone] Shahida Whittington MD Unavailable Allergies Active Allergy Reactions Criticality Noted Date Comments Naproxen GI intolerance 11/06/2023 Penicillins 01/19/2023 Other Reaction(s): Unknown Thyroid 01/02/2024 OIL ANALYST Thyroid Medications Azelex 20 % cream APPLY TO THE AFFECTED AREA(S) EVERY NIGHT AT BEDTIME 01/26/20 22 Active cholecalciferol (Vitamin D-3) 75 MCG (3000 UT) tablet Take by mouth. Active loratadine (Claritin) 10 MG tablet 1 (one) time each day at the same time. Active testosterone implant as directed Implant Active levothyroxine (Synthroid) 25 MCG tabletIndications :Other specified hypothyroidism Take 1 tablet (25 mcg) by mouth in the morning. Take before meals. 30 tablet 11 01/09/20 24 025 Active spironolactone (Aldactone) 100 MG tablet 02/22/20 24 Active Tirzepatide-Weigh t Management (ZEPBOUND SC) Inject under the skin Active progesterone 200 MG capsule Take 200 mg by mouth Daily Active valACYclovir (Valtrex) 1 g tablet Take 1,000 mg by mouth in the morning and 1,000 mg in the evening. 07/19/20 24 Active celecoxib (CeleBREX) 200 MG capsuleIndication s:Neck pain,Cervical arthritis Take 1 capsule (200 mg) by mouth Daily 30 capsule 1 12/11/19 25 Active ibuprofen 800 MG tabletIndications :Chronic bilateral low back pain without sciatica Take 1 tablet (800 mg) by mouth in the morning and 1 tablet (800 mg) in the evening and 1 tablet (800 mg) before bedtime. 90 tablet 11/01/19 24 025 Discontinued(I neffective) predniSONE (Deltasone) 20 MG tabletIndications :Polyarthralgia,R ight wrist pain Take 1 tablet (20 mg) by mouth in the morning and 1 tablet (20 mg) before bedtime. 10 tablet 10/04/19 25 025 Discontinued Active Problems Problem Noted Date Diagnosed Date Encounter for screening for malignant neoplasm o f colon 04/05/2024 Chronic laryngitis 01/19/2023 Hoarseness 01/19/2023 Hypothyroidism 01/19/2023 Assessment & Plan (01/19/2023 12:55 PM EDT): Synthroid did not work for her. She has done well on [place] thyroid. Other abnormalities of gait and mobility 023 Sanjana-menopause 01/19/2023 Resolved Problems Problem Noted Date Diagnosed Date Resolved Date Tension headache 01/19/2023 04/25/2023 Encounters Date Type Department Care Team Description 12/10/2024 8:30 AM EDT Office Visit [facility] [address] [address] Brittany Downs NP Neck pain (Primary Dx); Cervical arthritis; Radiculopathy affecting upper extremity; Facet arthritis of cervical region 12/10/2024 Bamboo flowsheet [facility] [place] [id number] [place] [address] Brittany Downs NP 12/10/2024 Travel 12/06/2024 Travel 11/27/2024 Telephone [facility] [address] [address] Catrachita Rainey MA 10/17/2024 Orders Only [facility] [address] [address] Shahida Ramos MA Positive MATTIE (antinuclear antibody) (Primary Dx) 10/09/2024 9:15 AM EDT Office Visit [facility] [address] [place] [phone] Kenny Galaviz, IZZY Neuritis (Primary Dx); Burning sensation of foot; Right foot pain 10/09/2024 Bamboo flowsheet [facility] [address] [place] [phone] Kenny Galaviz DPM 10/09/2024 Travel 10/08/2024 Travel 10/03/2024 9:30 AM EDT Office Visit [facility] [address] [facility] [place] [address] Brittany Downs, DENNIS Polyarthralgia (Primary Dx); Right wrist pain 10/03/2024 Telephone [facility] [address] [facility] [place] [address] Brittany Downs, OIL ANALYST 10/03/2024 Bamboo flowsheet [facility] [address] [facility] [place] [address] Brittany Downs, OIL ANALYST 10/03/2024 Travel 09/27/2024 Telephone [facility] [address] [facility] [place] [address] Barbra Álvarez MA 09/26/2024 10:00 AM EST Office Visit [facility] [address] [facility] [place] [address] Brittany Downs, OIL ANALYST Burning sensation of foot (Primary Dx); Chronic bilateral low back pain without sciatica; Hypothyroidism, unspecified type (CMS/HCC); Right wrist pain 09/26/2024 Orders Only [facility] [address] [facility] [place] [address] Brittany Downs, OIL ANALYST 09/26/2024 Bamboo flowsheet [facility] [address] [facility] [place] [address] Brittany Downs NP 09/26/2024 Travel 09/24/2024 Bamboo flowsheet [facility] [address] [place] [address] Brittany Downs NP 09/24/2024 Travel 09/23/2024 Travel from Last 3 Months Immunizations Immunization Administration Dates Next Due Pfizer Purple Cap SARS-CoV-2 Vaccination 021,09/28/2020 Family History Medical History Relation Name Comments Cancer Father Abdias Astudillo Heart disease Father Abdias Astudillo Stroke Paternal Grandmother Leidy Astudillo Melanoma Neg Hx Relation Name Status Comments Father Abdias Astudillo Mother Paternal Grandmother Leidy Astudillo Social History Tobacco Use Types Packs/Day Years [...] often do you attend chur ch or mandaen services? Patient declined 09/23/2024 Do you belong to any clubs o r organizations such as hinduism groups, unions, fraternal or athletic groups, or [...] care, and heating? Not very hard 09/23/2024 [facility] of Occupat ional Health - Occupational Stress [...] place to sleep or slept in a custodial (including now)? No 01/05/2023 Housing Stability Vital [...] were you homeless or living in a custodial (including now)? No 09/23/2024 Comments Unknown Sex [...] F) 12/10/2024 8:31 AM EDT Respiratory Rate 18 11/01/2023 2:34 PM EDT Oxygen Saturation 99% 12/10/2024 8:31 AM EDT Inhaled Oxygen Concentration - - Weight 62.8 kg (138 lb 6.4 oz) 12/10/2024 8:31 A M EDT Height 177.8 cm (5' 10 ) 10/09/2024 9:01 AM EDT Body Mass Index 19.86 10/09/2024 9:01 AM EDT Plan of Treatment Health Maintenance Due Date Last Done Comments CT Colonography 1974 FIT-DNA 1974 FIT 1974 FOBT 1974 Sigmoidoscopy 1974 HPV/Cotest 2004 Mammogram 03/23/2021 03/23/2020, 02/23, 03/12/2019, Additional history exists Cervical Cancer Screening 09/05/2022 Pap Smear 09/05/2022 09/05/2019, 02/12/2018 Influenza Vaccine (Season Ended) 2025 Colonoscopy 05/08/2034 05/08/2024 Colorectal Cancer Screening 05/08/2034 Procedures Procedure Name Priority Date/Time Associated Diagnosis Comments ANTINUCLEAR ANTIBODIES TITER AND PATTERN Routine 10/03/2024 9:53 AM EDT RHEUMATOID FACTOR Routine 10/03/2024 9:5 3 AM EDT Polyarthralgia COMPREHENSIVE METABOLIC PANEL Routine 10/03/2024 9:53 AM EDT Polyarthralgia CBC (INCLUDES DIFF/PLT) Routine 10/03/2024 9:53 AM EDT Polyarthralgia SED RATE BY MODIFIED WESTERGREN Routine 10/03/2024 9:53 AM EDT Polyarthralgia MATTIE SCREEN W/REFLEX Routine 10/03/2024 9 :53 AM EDT Polyarthralgia TSH W/REFLEX TO FT4 Routine 09/26/2024 1 0:17 AM EST Hypothyroidism, unspecified type (CMS/HCC) HM COLONOSCOPY Routine 05/08/2024 10:30 AM EDT BI MAMMOGRAM SCREENING BILATERAL Routine 03/23/2020 12:00 PM EDT from Last 3 Months or Most Recently Relevant to Health Maintenance Results * (ABNORMAL) ANTINUCLEAR ANTIBODIES TITER AND PATTERN (10/03/2024 9:53 AM EDT) MATTIE TITER 1:80(H) titer [facility] Comment: A low level MATTIE titer may be present in pre-clinical autoimmune diseases and normal individuals. Reference Range <1:40 Negative 1:40-1:80 Low Antibody Level >1:80 Elevated Antibody Level MATTIE PATTERN Nuclear, Dense Fine Speckled(A ) [facility] Comment: Dense fine speckled pattern is seen in normal individuals and rarely associated with systemic lupus erythematosis (SLE), Sjogren's syndrome and systemic sclerosis. AC-2: Dense Fine Speckled International Consensus on MATTIE Patterns (https://doi.org/10.1515/sqqf-5613-9526) 10/03/2024 9:53 AM EDT 10/03/2024 9:54 AM EDT Narrative Resulting Agency Comment Performing Organization Information Site ID: QPT Name: [facility] Address: [address] [place] [address], [address] [place] [phone] Director: Royal Mcmillan MD us Brittany Downs OIL ANALYST LAB BLOOD ORDERABLES Fi nal Result Performing Organization Address [facility] de Phone Number [facility] * Sedimentation rate, automated (10/03/2024 9:53 AM EDT) SED RATE BY MODIFIED AUSTYNERGREN 2 < OR = 20 mm/h [facility] Blood Venous blood specimen / Unknown 10/03/2024 9:53 AM EDT 10/03/2024 9:54 AM EDT Narrative Resulting Agency Comment Performing Organization Information Site ID: QPT Name: [facility] Address: [address] [place] [address], [address] [place] [phone] Director: Royal Mcmillan MD Brittany Downs OIL ANALYST LAB BLOOD ORDERABLES Fi nal Result Performing Organization Address City/[facility] Co de Phone Number [facility] * (ABNORMAL) CBC and differential (10/03/2024 9:53 AM EDT) WHITE BLOOD CELL COUNT 15.3(H) 3.8 - 10.8 Thousand/ uL [facility] RED BLOOD CELL COUNT 4.76 3.80 - 5.10 Million/u L [facility] HEMOGLOBIN 15.2 11.7 - 15.5 g/dL [facility] HEMATOCRIT 44.3 35.0 - 45.0 % [facility] MCV 93.1 80.0 - 100.0 fL [facility] MCH 31.9 27.0 - 33.0 pg [facility] MCHC 34.3 32.0 - 36.0 g/dL [facility] Comment: For adults, a slight decrease in the calculated MCHC value (in the range of 30 to 32 g/dL) is most likely not clinically significant; however, it should be interpreted with caution in correlation with other red cell parameters and the patient's clinical condition. RDW 12.2 11.0 - 15.0 % [facility] PLATELET COUNT 402(H) 140 - 400 Thousand/ uL [facility] MPV 10.0 7.5 - 12.5 fL [facility] ABSOLUTE NEUTROPHILS 13,097(H) 1,500 - 7,800 cells/uL [facility] ABSOLUTE LYMPHOCYTES 1,576 850 - 3,900 cells/uL [facility] ABSOLUTE MONOCYTES 566 200 - 950 cells/uL [facility] ABSOLUTE EOSINOPHILS 15 15 - 500 cells/uL [facility] ABSOLUTE BASOPHILS 46 0 - 200 cells/uL [facility] NEUTROPHILS 85.6 % [facility] LYMPHOCYTES 10.3 % [facility] MONOCYTES 3.7 % [facility] EOSINOPHILS 0.1 % [facility] BASOPHILS 0.3 % [facility] Blood Venous blood specimen / Unknown 10/03/2024 9:53 AM EDT 10/03/2024 9:54 AM EDT Narrative Resulting Agency Comment Performing Organization Information Site ID: QPT Name: [facility] Address: [address] [place] [address], [address] [place] [phone] Director: Royal Mcmillan MD Brittany Downs OIL ANALYST LAB BLOOD ORDERABLES Fi nal Result Performing Organization Address [facility] de Phone Number [facility] * Rheumatoid factor (10/03/2024 9:53 AM EDT) RHEUMATOID FACTOR <10 <14 IU/mL [facility] Blood Venous blood specimen / Unknown 10/03/2024 9:53 AM EDT 10/03/2024 9:54 AM EDT Narrative Resulting Agency Comment Performing Organization Information Site ID: QPT Name: [facility] Address: [address] [place] [address], [address] [place] [phone] Director: Royal Mcmillan MD Brittany Downs OIL ANALYST LAB BLOOD ORDERABLES Fi nal Result Performing Organization Address [facility]/ZIP Co de Phone Number [facility] * (ABNORMAL) MATTIE (10/03/2024 9:53 AM EDT) Pathologist [facility] MATTIE SCREEN, IFA POSITIVE( A) NEGATIVE [facility] Comment: MATTIE IFA is a first line screen for detecting the presence of up to approximately 150 autoantibodies in various autoimmune diseases. A positive MATTIE IFA result is suggestive of autoimmune disease and reflexes to titer and pattern. Further laboratory testing may be considered if clinically indicated. For additional information, please refer to http://education.[employer]/faq/VYW745 (This link is being provided for informational/ educational purposes only.) Blood Venous blood specimen / Unknown 10/03/2024 9:53 AM EDT 10/03/2024 9:54 AM EDT Narrative Resulting Agency Comment Performing Organization Information Site ID: QPT Name: [facility] Address: [address] [place] [address], [address] [place] [phone] Director: Royal Mcmillan MD Brittany Downs OIL ANALYST LAB BLOOD ORDERABLES Fi nal Result Performing Organization Address [facility] Co de Phone Number [facility] * (ABNORMAL) Comprehensive metabolic panel (10/03/2024 9:53 AM EDT) Pathologist [facility] Glucose 79 65 - 99 mg/dL [facility] Comment: Fasting reference interval BUN 15 7 - 25 mg/dL [facility] Creatinine 0.88 0.50 - 1.03 mg/dL [facility] EGFR 80 > OR = 60 mL/min/1. 73m2 [facility] BUN/CREATININE RATIO SEE NOTE: 6 - 22 (calc) [facility] Comment: Not Reported: BUN and Creatinine are within reference range. Sodium 136 135 - 146 mmol/L [facility] Potassium, Bld 4.4 3.5 - 5.3 mmol/L [facility] Chloride 101 98 - 110 mmol/L [facility] Carbon Dioxide 25 20 - 32 mmol/L [facility] Calcium 9.8 8.6 - 10.4 mg/dL [facility] PROTEIN, TOTAL 6.7 6.1 - 8.1 g/dL [facility] ALBUMIN 4.1 3.6 - 5.1 g/dL [facility] GLOBULIN 2.6 1.9 - 3.7 g/dL (calc) [facility] ALBUMIN/GLOBULIN RATIO 1.6 1.0 - 2.5 (calc) [facility] BILIRUBIN, TOTAL 0.5 0.2 - 1.2 mg/dL [facility] ALKALINE PHOSPHATASE 66 37 - 153 U/L [facility] AST 15 10 - 35 U/L [facility] ALT 36(H) 6 - 29 U/L [facility] Blood Venous blood specimen / Unknown 10/03/2024 9:53 AM EDT 10/03/2024 9:54 AM EDT Narrative Resulting Agency Comment Performing Organization Information Site ID: QPT Name: [facility] Address: [address] [place] [address], [address] [place] [phone] Director: Royal Mcmillan MD us Brittany Downs OIL ANALYST LAB BLOOD ORDERABLES Fi nal Result Performing Organization Address [facility] de Phone Number [facility] * TSH W/REFLEX TO FT4 (09/26/2024 10:17 AM EST) TSH W/REFLEX TO FT4 0.44 mIU/L [facility] Comment: Reference Range > or = 20 Years 0.40-4.50 Ranges First trimester 0.26-2.66 Second trimester 0.55-2.73 Third trimester 0.43-2.91 09/26/2024 10:1 7 AM EST 09/26/2024 10:17 AM EST Narrative [facility] - 09/27/2024 5:53 AM EST FASTING:UNKNOWN FASTING: UNKNOWN Resulting Agency Comment Performing Organization Information Site ID: QPT Name: [facility] Address: [address] [place] [address], [address] [place] [phone] Director: Royal Mcmillan MD us Parvin Key OIL ANALYST LAB BLOOD ORDERABLES Fi nal Result Performing Organization Address [facility] de Phone Number [facility] * Hm Colonoscopy (05/08/2024 10:30 AM EDT) Anatomical Region Laterality Modality Other us Brittany Downs OIL ANALYST HEALTH MAINTENANCE Katie l Result * Bilateral screening mammogram (03/23/2020 12:00 PM EDT) Anatomical Region Laterality Modality Breast Bilateral Mammography Narrative 03/23/2020 12:00 PM EDT PERFORMED AT [facility] LOCATION:[id number] Procedure Note CONVERSION, GENERIC - 01/27/2023 PERFORMED AT [facility] LOCATION:[id number] Shahida Whittington MD IMG BI PROCEDURES Final Resul t from Last 3 Months or Most Recently Relevant to Health Maintenance Insurance [employer] Care Teams Log Data Technician Relationship Specialty Start Date End Date Shahida Whittington MD [address] [place], [place] [phone] PCP - General Family Medicine 01/04/23 Shahida Whittington MD [address] [place] [address] PCP - Medical [place] [employer] 01/21/19 07/23/99
--- OUTSIDE RECORDS SUMMARY | 2024-12-11 23:13 | XMS_ITS | Encounter Summary ---
Author Organization [facility] Address [address] [place] [address] Care Team Providers Care General Pediatrician Name Role Phone Shahida Whittington MD Primary Care Provider [phone] Shahida Whittington MD Unavailable [phone] Encounter Details Date Type Department Care Team (Late st Contact Info) Description 09/26/2024 Orders Only [facility] [address] [place] [address] Brittany Downs NP [address] [place] [address] Social History Tobacco Use Types [...] How often do you attend chur or yazidism services? Patient declined 09/23/2024 Do you belong to any clubs o r organizations such as religion groups, unions, fraternal or athletic groups, or [...] care, and heating? Not very hard 09/23/2024 [facility] [place] of Occupat ional Health - Occupational Stress [...] a senior care (including now)? No 01/05/2023 Housing Stability Vital Sign Answer Austyn e Recorded In the last 12 months, was t here a time when you were not able to pay the mortgage or rent on time? No 09/23/2024 In the past 12 months, how m any times have you moved where you were living? 0 09/23/2024 At any time in the past 12 m [place], were you homeless or living in a senior care (including now)? No 09/23/2024 Comments Unknown Sex and Gender Information Value Date Recorded Sex Assigned at Not on file Legal Sex Female 6:53 PM EDT Gender Identity Not on file Sexual Orientation Not on file documented as of this encounter Plan of Treatment Not on file documented as of this encounter Procedures Procedure Name Priority Date/Time Associated Diagnosis Comments HM COLONOSCOPY Routine 05/08/2024 10:30 AM EDT documented in this encounter Results * Hm Colonoscopy (05/08/2024 10:30 AM EDT) Anatomical Region Laterality Modality Other Brittany Downs SUPERVISOR BILLPOSTING HEALTH MAINTENANCE Katie dumont Result documented in this encounter Visit Diagnoses Not on filedocumented in this encounter Care Teams General Pediatrician Relationship Specialty Start Date End Date Shahida Whittington MD [address] [facility] [place] [address] PCP - General Family Medicine 01/04/23 Shahida Whittington MD [address] [place] [address] PCP - Medical [place] [employer] 01/21/19 07/23/99 documented as of this encounter
--- OUTSIDE RECORDS SUMMARY | 2024-12-11 23:13 | XMS_ITS | Encounter Summary ---
Author Organization [facility] tem Address [id number] [address] [place] [address] Care Team Providers Care Svp Marketing Name Role Phone Shahida Whittington MD Primary Care Provider [phone] Encounter Details Date Type Department Care Team (Late st Contact Info) Description 11/26/[address] [facility] of [address] [address] Bonita Greco CMA Social History Tobacco Use Types Packs/Day Years [...] as of this encounter Miscellaneous Notes * Telephone Encounter - Bonita Greco CMA - 11/26/2024 9:48 AM EDT Vidya called and would like to know what the outcome of her x-rays were from last week? Please advise. documented in this encounter Plan of Treatment Not on file documented as of this encounter Visit Diagnoses Not on filedocumented in this encounter Care Teams Svp Marketing Relationship Specialty Start Date End Date Shahida Whittington MD [address] [place], [place] [id number] PCP - General 10/23/24 documented as of this encounter
[2024-12-11 23:31] VITALS: BP 123/71
[2024-12-11 23:35] LABS: Basophils Absolute Auto 0.1 10^3/uL (0.0-0.1); Basophils Percent Auto 0.6 % (0.2-2.0); Eosinophils Absolute Auto 0.2 10^3/uL (0.0-0.7); Eosinophils Percent Auto 1.5 % (0.9-7.0); Hematocrit 39.9 % (36.0-48.0); Immature Granulocytes Abs Auto 0.04 10^3/uL (0.00-0.03); Immature Granulocytes Pct Auto 0.3 % (0.0-0.5); Lymphocytes Absolute Auto 2.5 10^3/uL (1.2-3.8); Lymphocytes Percent Auto 19.1 % (20.5-60.0); Mean Corpuscular HGB Conc 35.1 g/dL (29.9-35.2); Mean Corpuscular Hemoglobin 32.5 pg (26.7-34.0); Mean Corpuscular Volume 92.6 fL (81.0-99.0); Mean Platelet Volume 9.8 fL (9.5-13.5); Monocytes Absolute Auto 1.1 10^3/uL (0.3-0.8); Monocytes Percent Auto 8.1 % (1.7-12.0); Neutrophils Absolute Auto 9.1 10^3/uL (1.4-6.5); Neutrophils Percent Auto 70.4 % (43.0-75.0); Platelet Count 403 10^3/uL (150-450); Red Blood Count 4.31 10^6/uL (4.20-5.40); Red Cell Distribution Width 12.6 % (11.0-15.0)
[2024-12-11] MEDS: ONDANSETRON PF 4 MG/2 ML VIAL IV (23:39)
[2024-12-11] MEDS: MORPHINE SULFATE 4 MG/ML VIAL IV (23:39)
[2024-12-11] MEDS: FAMOTIDINE/PF 20 MG/2 ML VIAL IV (23:39)
--- NOTE | 2024-12-11 23:44 | ED.GENADUL1 ---
HPI HPI - General Adult General Chief complaint: Chest Pain Stated complaint: CHEST PAIN Time Seen by Provider: 12/11/24 23:10 Source: patient Mode of arrival: walk-in History of Present Illness HPI narrative: This 49-year-old female, non-smoker presents for evaluation of epigastric abdominal/chest pain. The patient states she had Spanish food for dinner and then ice cream before going to work. She started feeling some pain in her upper abdomen that radiates into her back while at work. She took a Gas-X without significant improvement. She denies any nausea or vomiting. She is pointing to the lower rib cage/epigastrium of area of greatest pain. She is shaking upon arrival. She was recently seen by myself for arthralgias of the wrist and then by her family physician and referred to rheumatology. She states a battery of tests were performed on her by the special education bus driver and they did not find any acute rheumatologic disease. She then had a CT scan done of her neck that showed degenerative disc disease and she is planning to see a neurosurgeon in the future. She does have a history of a fusion in her low back and scoliosis. The patient has recently been on weight loss injections but states she has not taken 1 in the past 2 weeks. She has not had any vomiting or diarrhea. She denies a history of alcohol abuse or tobacco use. Related Data Allergies Allergy/AdvReac Type Severity Reaction Status Date / Time Penicillins Allergy Unknown Unknown Verified 09/24/24 04:26 Opioid HPI Opioid Management Most Recent Opioid Data: Last Pain Scale 10 Today, 00:08 Last MAR Pain Assessment 12/11/24, 23:39 Review of Systems ROS Status of ROS 10 or more systems reviewed and unremarkable except as noted in history and below PFSH PFSH Social History Little interest or pleasure in doing things: not at all Feeling down, depressed, or hopeless: not at all Exam Narrative Exam Narrative: Vital signs and Nursing Notes reviewed: Patient is afebrile with a normal pulse, blood pressure is mildly elevated 130/75, she is not hypoxic with pulse ox of 97% on room air General: Awake, alert, oriented, anxious and trembling adult female, no respiratory distress HEENT: Normocephalic atraumatic, mucous membranes are moist and pink, eyes are clear, normal conjunctiva, vision is grossly intact, no scleral icterus noted Neck: Supple, no meningeal signs, no anterior or posterior cervical lymphadenopathy Chest: Lungs are clear to auscultation with good air entry, there is no wheezing rhonchi or rales appreciated no accessory muscle use, patient is speaking in complete sentences-there is tenderness to palpation in the lower anterior ribs on the right and in the epigastrium CVS: Regular rate and rhythm S1-S2, no murmurs rubs or gallops, pulses are brisk and equal bilaterally ABD: Soft, nondistended, nontender, mild epigastric tenderness with no rebound guarding or rigidity. No right upper quadrant tenderness with negative Jama sign. No pulsatile masses are appreciated Extremities: Moving all extremities, no lower extremity tenderness or swelling noted, negative Homans' sign, pulses are brisk and equal bilaterally Skin: Normal in appearance without rash,pallor, petechiae or purpura Neuro: No focal deficits Constitutional Vital Signs, click to edit/add: Last Vital Signs Pulse 83 12/11/24 23:11 Resp 20 12/11/24 23:11 BP 120/74 12/12/24 00:30 Pulse Ox 97 12/11/24 23:11 O2 Del Method Room Air 12/11/24 23:11 Course Vital Signs Vital signs: Vital Signs Blood Pressure 130/75 12/11/24 23:10 Pulse Rate 83 12/11/24 23:11 Respiratory Rate 20 12/11/24 23:11 Blood Pressure 120/74 12/12/24 00:30 Pulse Oximetry 97 12/11/24 23:11 Oxygen Delivery Method Room Air 12/11/24 23:11 Medical Decision Making [facility] [place] Narrative Medical decision making narrative: This 49-year-old female presents for evaluation of epigastric/rib pain that started acutely while at work tonight. She had Spanish food and ice cream for dinner prior to going to work. She denied any nausea or vomiting. She states the pain radiated into her back. She denies drinking or smoking. She is on an injectable weight loss medication but states she has not taken it for the past 2 weeks. On arrival she appeared to be in moderate amount of pain. She denied any shortness of breath dizziness or diaphoresis. She does not have a history of heart disease diabetes tobacco use or hypertension. EKG done upon arrival was a sinus rhythm with no acute findings. An IV was placed and she was medicated with IV fluids, Zofran, morphine and Pepcid with minimal relief. She was then medicated with a dose of Toradol again with minimal relief. On reevaluation she still appeared to be uncomfortable was given a GI cocktail. After the GI cocktail her pain resolved. Cardiac workup was ordered. Her white count is mildly elevated at 13. She has a stable hemoglobin. Platelet count is normal. She has a normal troponin and D-dimer. Comprehensive metabolic profile is normal. LFTs and lipase are also normal. Two-view chest x-ray was ordered and reviewed by radiology with no acute cardiopulmonary process appreciated. CT scan of the abdomen pelvis was ordered CT scan shows small hepatic cysts, possible mild enteritis mild mesenteric adenitis, no features of colitis, no cholecystitis or pancreatitis with very slight fullness of the common bile duct and intrahepatic bile ducts however no obstructing stone or mass is identified. No dilated pancreatic duct and no features of acute pancreatitis, no cholecystitis, prior L4-L5 fusion normal appendix no free fluid or free air no abscess or hematoma. The results of the CT scan were discussed at length with the patient and her . She will be given a copy of her records. I suspect that she either had a bowel spasm or has acute gastritis as her symptoms have resolved. I suggest that she follow-up closely for an outpatient ultrasound of her gallbladder. She will be discharged home with prescription for Pepcid and Protonix with recommendation for a bland diet and slow advancement to a normal diet. I did explain in light of the fact that she may have some mild mesenteric adenitis that she may end up with some degree of diarrhea. Lab Data Lab results reviewed: Yes I reviewed the patient's lab results Labs: Lab Results 12/11/24 Range/Units 23:24 WBC 13.0 H (4.0-11.0) 10^3/uL RBC 4.31 (4.20-5.40) 10^6/uL Hgb 14.0 (12.0-16.0) g/dL Hct 39.9 (36.0-48.0) % MCV 92.6 (81.0-99.0) fL MCH 32.5 (26.7-34.0) pg MCHC 35.1 (29.9-35.2) g/dL RDW 12.6 (11.0-15.0) % Plt Count 403 (150-450) 10^3/uL MPV 9.8 (9.5-13.5) fL Neut % (Auto) 70.4 (43.0-75.0) % Lymph % (Auto) 19.1 L (20.5-60.0) % Hale % (Auto) 8.1 (1.7-12.0) % Eos % (Auto) 1.5 (0.9-7.0) % Baso % (Auto) 0.6 (0.2-2.0) % Neut # (Auto) 9.1 H (1.4-6.5) 10^3/uL Lymph # (Auto) 2.5 (1.2-3.8) 10^3/uL Hale # (Auto) 1.1 H (0.3-0.8) 10^3/uL Eos # (Auto) 0.2 (0.0-0.7) 10^3/uL Baso # (Auto) 0.1 (0.0-0.1) 10^3/uL Abs Immat Gran (auto) 0.04 H (0.00-0.03) 10^3/uL Imm/Tot Granulo (auto) 0.3 (0.0-0.5) % D-Dimer <0.19 (<=0.59) mg/L FEU Sodium 137 (136-145) mmol/L Potassium 3.7 (3.5-5.1) mmol/L Chloride 103 (98-107) mmol/L Carbon Dioxide 24.7 (21.0-32.0) mmol/L Anion Gap 13.0 BUN 13.0 (7.0-18.0) mg/dL Creatinine 0.92 (0.55-1.02) mg/dL Est GFR ( Amer) >60 (>=60 mL/min/1.73m^2) Est GFR (Non-Af Amer) >60 (>=60 mL/min/1.73m^2) BUN/Creatinine Ratio 14.1 Glucose 124 H (74-106) mg/dL Calcium 10.0 (8.5-10.1) mg/dL Total Bilirubin 0.2 (0.2-1.0) mg/dL AST 15 (15-37) U/L ALT 40 (14-59) U/L Alkaline Phosphatase 84 (46-116) U/L Troponin I High Sens <4.0 L (4.0-51.3) pg/mL Total Protein 6.8 (6.4-8.2) g/dL Albumin 3.4 (3.4-5.0) g/dL Globulin 3.4 g/dL Albumin/Globulin Ratio 1.0 Lipase 52.0 (16.0-77.0) U/L ECG Data Attestation: I personally reviewed and interpreted this ECG as follows: (Sinus rhythm at 67 bpm, normal axis, normal intervals, no acute ST segment elevation or T wave inversion) Discharge Plan Discharge Chief Complaint: Chest Pain Clinical Impression: Epigastric abdominal pain Patient Disposition: Home, Self-Care Time of Disposition Decision: 02:25 Condition: Good Print Language: Namibian Instructions: Epigastric Pain (ED) Referrals: CASTILLO JO [Primary Care Provider, Family Practice] - 1 week
[2024-12-11 23:50] LABS: D Dimer <0.19 mg/L FEU (<=0.59)
[2024-12-12 00:01] VITALS: BP 123/64
[2024-12-12] MEDS: KETOROLAC TROMETHAMINE 30 MG/ML VIAL IVP (00:08)
[2024-12-12 00:10] LABS: BUN Creatinine Ratio 14.1; Carbon Dioxide 24.7 mmol/L (21.0-32.0); Chloride 103 mmol/L (98-107); Estimated GFR (African America >60 (>=60 mL/min/1.73m^2); Estimated GFR (Non-African Ame >60 (>=60 mL/min/1.73m^2); Glucose 124 mg/dL (74-106); Potassium 3.7 mmol/L (3.5-5.1); Sodium 137 mmol/L (136-145)
[2024-12-12 00:11] LABS: Alanine Aminotransferase 40 U/L (14-59); Albumin Level 3.4 g/dL (3.4-5.0); Alkaline Phosphatase 84 U/L (46-116); Aspartate Amino Transferase 15 U/L (15-37); Bilirubin Total 0.2 mg/dL (0.2-1.0); Globulin 3.4 g/dL; Total Protein 6.8 g/dL (6.4-8.2); Troponin I High Sensitivity <4.0 pg/mL (4.0-51.3)
[2024-12-12 00:30] VITALS: BP 120/74
--- NOTE | 2024-12-12 00:30 | ECG_ITS ---
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 Measurements Intervals [employer] Rate: 67 P: 65 [place]: 168 QRS: 70 QRSD: 90 T: 68 QT: 372 QTc: 388 Interpretive Statements 1100 Sinus rhythm 9110 normal ECG No previous ECG available for comparison Electronically Signed On 12-12-2024 7:04:51 EDT by GWNE VILLALOBOS M.D.
[2024-12-12] MEDS: lidocaine HCL 15 ML, MAG HYDROX/ALUMINUM HYD/SIMETH 30 ML, HYOSCYAMINE SULFATE 0.25 MG PO (00:40)
[2024-12-12 02:44] VITALS: O2SAT 98
== END 2024-12-12 02:46 | disposition home or self-care (01) ==
PROVIDERS: Emergency Provider Emergency Medicine; PCP Family Medicine
DX: R10.13 Epigastric pain (principal); M50.30 Other cervical disc degeneration, unspecified cervical region; Z98.1 Arthrodesis status; K76.89 Other specified diseases of liver
CPT/HCPCS: 36415; 71046; 74177; 80053; 83690; 84484; 85025; 85378; 93005; 96374; 96375; 99285; J1885; J2270; J2405; J3490; Q9967